=== PATIENT | female | born 1935 | race Caucasian/White ===

== ENCOUNTER 2020-01-13 13:58 | Outpatient (CLI) | payer MEDICARE, SELFPAY ==
[2020-01-13 14:34] LABS: Hematocrit 38.1 % (37.0-47.0); Hemoglobin 12.3 g/dL (12.0-15.0); Mean Corpuscular HGB Conc 32.3 g/dl (32-36); Mean Corpuscular Hemoglobin 30.2 pg (26-34); Mean Corpuscular Volume 93.6 fl (80-100); Mean Platelet Volume 9.6 fl (7.4-10.4); Platelet Count Result 249 k/mm3 (150-375); Red Blood Count 4.07 M/mm3 (4.2-5.4); Red Cell Distribution Width 12.3 % (11.5-14.5); White Blood Count 9.4 K/mm3 (4.5-10.0)
[2020-01-13 14:41] LABS: Add Urine Microscopic? YES; Appearance Urine Cloudy (Clear); Bacteria Urine 2+ /hpf; Bilirubin Urine 1+ (Negative); Blood Urine Negative (Negative); Color Urine Yellow (Yellow); Glucose Urine UA Negative (Negative); Hyaline Casts Urine 15-19 /lpf; Ketones Urine Negative (Negative); Leukocyte Esterase Ur 1+ LEU/UL (NEGATIVE); Mucus Urine Few /lpf; Nitrate Urine Negative (Negative); Protein Urine 1+ mg/dL (Negative); Squamous Epithelial Cell Urine Many /hpf (Few); WBC Urine 16-20 /hpf (0-3)
[2020-01-13 14:50] LABS: Alanine Aminotransferase 15 U/L (4-35); Albumin Level 4.2 g/dL (3.5-5.1); Alkaline Phosphatase 94 U/L (38-126); Aspartate Amino Transferase 22 U/L (14-36); Blood Urea Nitrogen 26 mg/dL (7-17); Calcium 9.1 mg/dL (8.4-10.2); Carbon Dioxide 25 mmol/L (22-30); Chloride 106 mmol/L (98-107); Cholesterol 179 mg/dL (0-200); Estimated Glomerular Filt Rate 36; Glucose 110 mg/dL (65-105); HDL Direct 46 mg/dL; Potassium 4.8 mmol/L (3.4-5.0); Sodium 139 mmol/L (137-145); Triglycerides 261 mg/dL (<150)
[2020-01-13 15:01] LABS: LDL Cholesterol Direct 90 mg/dL
== END 2020-01-13 13:59 | disposition home or self-care (01) ==
PROVIDERS: PCP Family Medicine; Visit Provider Family Medicine
DX: I12.9 Hypertensive chronic kidney disease with stage 1 through stage 4 chronic kidney disease, or unspecified chronic kidney disease (principal); E78.2 Mixed hyperlipidemia; N18.3 Chronic kidney disease, stage 3 (moderate)
CPT/HCPCS: 36415; 80053; 80061; 81001; 84443; 85027

== ENCOUNTER 2020-02-03 12:33 | Outpatient (CLI) | payer MEDICARE, SELFPAY ==
--- NOTE | ~2020-02-03 | DEXA_ITS ---
Bone Density Report Name: Dahiana Polo Age: 84 Sex: Female Ethnicity: White Date of : 1935 Indication: osteopenia; monitoring treatment; height loss; hysterectomy; rheumatoid arthritis; Referring Provider: Brian Dugan Study: Bone densitometry was performed. Exam Date: February 03, 2020 Accession number: [id number] Bone Density: Region BMD T-score Z-score Classification AP Spine (L1, L2) 1.212 2.1 4.8 Normal Femoral Neck (Left) 0.447 -3.6 -1.1 Osteoporosis Total Hip (Left) 0.687 -2.1 0.2 Osteopenia Total Hip Bilateral Avg 0.719 -1.8 0.4 Osteopenia Femoral Neck (Right) 0.472 -3.4 -0.9 Osteoporosis Total Hip (Right) 0.750 -1.6 0.7 Osteopenia World Health Organization criteria for BMD impression classify patients as: Normal (T-score at or above -1.0), Osteopenia (T-score between -1.0 and -2.5), or Osteoporosis (T-score at or below -2.5). 10-year Fracture Risk: FRAX not reported because: Some T-score for Spine Total or Hip Total or Femoral Neck at or below -2.5 Treated for osteoporosis Previous Exams: Region Exam Age BMD T-score BMD Change BMD Change Date g/cm2 vs Baseline vs Previous AP Spine(L1, L2) 02/03/2020 84 1.212 2.1 0.079(7.0%)* 0.079(7.0%)* 10/11/2016 81 1.133 1.4 Total Hip(Left) 02/03/2020 84 0.687 -2.1 -0.011(-1.6%) -0.011(-1.6%) 10/11/2016 81 0.698 -2.0 Total Hip(Right) 02/03/2020 84 0.750 -1.6 0.038(5.3%)* 0.038(5.3%)* 10/11/2016 81 0.712 -1.9 *Denotes significance at 95% confidence level, LSC for AP Spine = 0.022 g/cm2, LSC for Total Hip = 0.027 g/cm2 Clinical Information Provided by Patient: Has rheumatoid arthritis Is being treated for osteoporosis Has used the following medications: Prolia (i.e. denosumab), Vitamin D, Calcium Has the following medical conditions: Hysterectomy Patient maximum height was 65 Menopause Age: 53 No regular weight bearing exercise Drinks caffeinated beverages Onset of menses at age 12 Number of children 0 Impression: The patient has osteoporosis, based on the Left Femoral Neck T-score. No significant bone loss was observed. Discussion: PATIENT UNDER TREATMENT WITH NO SIGNIFICANT BMD LOSS SINCE LAST EXAM. In an untreated patient, BMD typically declines with age. A lack of decline or gain is usually a sign that treatment is efficacious and fracture risk is reduced. It is important to ask patients whether they are taking their medications and to encourage continued
== END 2020-02-03 12:34 | disposition home or self-care (01) ==
LOC: ANHIMG 12:34
PROVIDERS: PCP Family Medicine; Visit Provider Family Medicine
DX: Z78.0 Asymptomatic menopausal state (principal); M85.89 Other specified disorders of bone density and structure, multiple sites; M81.0 Age-related osteoporosis without current pathological fracture
CPT/HCPCS: 77080

== ENCOUNTER 2020-09-07 13:55 | Outpatient (CLI) | payer MEDICARE, SELFPAY | END 2020-09-07 13:56 | disposition home or self-care (01) | PROVIDERS: PCP Family Medicine; Visit Provider Family Medicine | DX: I12.9 Hypertensive chronic kidney disease with stage 1 through stage 4 chronic kidney disease, or unspecified chronic kidney disease (principal) | CPT/HCPCS: 36415 ==

== ENCOUNTER 2020-10-12 11:45 | Outpatient (CLI) | payer MEDICARE, SELFPAY ==
[2020-10-12 12:26] LABS: Add Urine Microscopic? YES; Appearance Urine Cloudy (Clear); Bacteria Urine Trace /hpf; Bilirubin Urine Negative (Negative); Blood Urine Negative (Negative); Color Urine Yellow (Yellow); Glucose Urine UA Negative (Negative); Ketones Urine Negative (Negative); Leukocyte Esterase Ur Trace LEU/UL (Negative); Mucus Urine Rare /lpf; Nitrate Urine Negative (Negative); Protein Urine 3+ mg/dL (Negative); RBC Urine 0-2 /hpf (0-2); Specific Grav Ur 1.015 (1.001-1.035); Squamous Epithelial Cell Urine Many /hpf (Few); Urobilinogen Urine Negative mg/dL (<2.0)
== END 2020-10-12 11:46 | disposition home or self-care (01) ==
LOC: ANHLAB 11:47
PROVIDERS: PCP Family Medicine; Visit Provider Family Medicine
DX: N39.0 Urinary tract infection, site not specified (principal)
CPT/HCPCS: 81001; 87077; 87086; 87088; 87186

== ENCOUNTER 2021-03-10 10:15 | Outpatient (CLI) | payer MEDICARE, SELFPAY ==
[2021-03-10 11:07] LABS: Hematocrit 38.9 % (37.0-47.0); Hemoglobin 12.7 g/dL (12.0-15.0); Mean Corpuscular HGB Conc 32.6 g/dl (32-36); Mean Corpuscular Hemoglobin 30.6 pg (26-34); Mean Corpuscular Volume 93.7 fl (80-100); Mean Platelet Volume 10.6 fl (7.4-10.4); Platelet Count Result 260 k/mm3 (150-375); Red Blood Count 4.15 M/mm3 (4.2-5.4); Red Cell Distribution Width 12.8 % (11.5-14.5); White Blood Count 8.8 K/mm3 (4.5-10.0)
[2021-03-10 11:13] LABS: Add Urine Microscopic? YES; Appearance Urine Cloudy (Clear); Bilirubin Urine Negative (Negative); Blood Urine Negative (Negative); Color Urine Yellow (Yellow); Glucose Urine UA Negative (Negative); Ketones Urine Negative (Negative); Leukocyte Esterase Ur 1+ LEU/UL (NEGATIVE); Nitrate Urine Negative (Negative); Protein Urine 1+ mg/dL (Negative); Specific Grav Ur 1.015 (1.001-1.035); Squamous Epithelial Cell Urine Many /hpf (Few); Urobilinogen Urine Negative mg/dL (<2.0)
[2021-03-10 11:29] LABS: Alanine Aminotransferase 16 U/L (4-35); Albumin Level 4.2 g/dL (3.5-5.1); Alkaline Phosphatase 123 U/L (38-126); Anion Gap 15 mmol/L (8-16); Aspartate Amino Transferase 26 U/L (14-36); Bilirubin,Total 0.9 mg/dL (0.2-1.3); Blood Urea Nitrogen 28 mg/dL (7-17); Calcium 9.6 mg/dL (8.4-10.2); Carbon Dioxide 25 mmol/L (22-30); Chloride 103 mmol/L (98-107); Cholesterol 196 mg/dL (0-200); Estimated Glomerular Filt Rate 39; Glucose 115 mg/dL (65-110); HDL Direct 44 mg/dL; Potassium 4.6 mmol/L (3.4-5.0); Sodium 143 mmol/L (137-145); Triglycerides 224 mg/dL (<150)
[2021-03-10 11:40] LABS: LDL Cholesterol Direct 88 mg/dL
== END 2021-03-10 10:16 | disposition home or self-care (01) ==
LOC: ANHLAB 10:19
PROVIDERS: PCP Family Medicine; Visit Provider Family Medicine
DX: I12.9 Hypertensive chronic kidney disease with stage 1 through stage 4 chronic kidney disease, or unspecified chronic kidney disease (principal); N18.30 Chronic kidney disease, stage 3 unspecified; E78.2 Mixed hyperlipidemia
CPT/HCPCS: 36415; 80053; 80061; 81001; 84443; 85027

== ENCOUNTER 2021-03-19 09:15 | Inpatient (IN) | payer MEDICARE, SELFPAY ==
[2021-03-19] VITALS (31 sets, daily range): BP systolic 140–172; BP diastolic 56–90; PULSE 75–96; RESP 14–20; TEMP 36.8–37.1; O2SAT 92–100; BMI 40.4
--- NOTE | ~2021-03-19 | XR_ITS ---
EXAMINATION: XR chest 1V portable EXAM DATE: 03/19/2021 09:30 INDICATION: Cough and shortness of breath. TECHNIQUE: Portable AP frontal chest x-ray was obtained. There is no prior study for comparison. FINDINGS: The lungs are clear. There are no pleural effusions. Cardiac silhouette is prominent but magnified on this AP technique. There is no pneumothorax suspected. There are bony degenerative ch anges. IMPRESSION: No acute cardiopulmonary findings. Reviewed, dictated and finalized at location A.
--- NOTE | ~2021-03-19 | CT_ITS ---
EXAMINATION: CTA chest PE protocol EXAM DATE: 03/19/2021 11:34 INDICATION: Hypoxia, cough. TECHNIQUE: Spiral CTA of the chest (pulmonary arteries) was performed with 100 cc Omnipaque 350 intr avenous contrast injection. Images were acquired during the pulmonary arterial phase. Coronal maxi mum intensity projection 3D-reconstructions were created by the technologist on dedicated workstation . Axial, coronal and sagittal reformatted images were reviewed. The dose-length product (DLP) for t his examination was 639.19 mGy-cm. The exposure was tailored according to patient size (auto mA exp osure control), and iterative reconstruction (ASIR) was used as additional dose reduction technique. There is no prior study for comparison. FINDINGS: Pulmonary arteries are well opacified and without intraluminal filling defects. No thora cic aortic dissection. Right lower lobe calcified granuloma. Mild emphysema. There are no pleural o r pericardial effusions. Tracheobronchial tree is patent. There is no mediastinal, hilar or axill vinh lymphadenopathy. There is no pneumothorax. Borderline cardiomegaly. There is mild coronary arterial calcification, arterial sclerosis. Upper abdomen is unremarkable. There is thoracic spond ylosis without osteoblastic or osteolytic lesions identified. IMPRESSION: 1. Mild emphysema. 2. Borderline cardiomegaly. 3. No acute cardiopulmonary findings. Reviewed, dictated and finalized at location A.
--- NOTE | ~2021-03-19 | US_ITS ---
EXAMINATION: US venous doppler LE EXAM DATE: 03/22/2021 14:02 INDICATION: Elevated d-dimer. Hypoxia. TECHNIQUE: Multiple grayscale, color flow and Doppler images of the lower extremity deep venous syste ms bilaterally were obtained and reviewed. Correlation is made to CT pulmonary scan 03/19/2021. FINDINGS: Right side: The right common femoral, femoral and profunda veins demonstrate normal color flow, respi ratory variation, augmentation and compressibility. Compressibility, color flow confirmed within the right popliteal, posterior tibial, peroneal, and greater saphenous veins. Left side: The left common femoral, femoral and profunda veins demonstrate normal color flow, respira tory variation, augmentation and compressibility. Compressibility, color flow confirmed within the l eft popliteal, posterior tibial, peroneal, and greater saphenous veins. There is a left-sided Slaughter' s cyst measuring 7 x 4 x 2.5 cm. IMPRESSION: 1. No lower extremity deep venous thrombosis bilaterally. 2. Large left Slaughter's cyst. Reviewed, dictated and finalized at location B.
--- NOTE | 2021-03-19 09:19 | ECG_ITS ---
Measurements Intervals [place] Rate: 90 P: 63 NH: 288 QRS: -47 QRSD: 118 T: 91 QT: 350 QTc: 428 Interpretive Statements SINUS RHYTHM WITH FIRST DEGREE AV BLOCK INCOMPLETE RIGHT BUNDLE BRANCH BLOCK LEFT ANTERIOR FASCICULAR BLOCK LEFT VENTRICULAR HYPERTROPHY AND ST-T CHANGE BASELINE ARTIFACT- I, III, AVL, V2 ABNORMAL ECG Electronically Signed On 03-19-2021 11:25:16 CDT by Teo Daniels D.O.
[2021-03-19 09:59] LABS: Basophils Absolute Auto 0.1 K/mm3 (0.0-0.1); Basophils Percent Auto 0.6 % (0.2-1.2); Eosinophils Absolute Auto 0.3 K/mm3 (0-0.3); Eosinophils Percent Auto 2.5 % (0-4.4); Hematocrit 40.7 % (37.0-47.0); Hemoglobin 13.1 g/dL (12.0-15.0); Immature Granulocyte Absolute 0.07 K/mm3 (0.00-0.031); Immature Granulocyte Percent A 0.6 % (0-0.5); Lymphocytes Absolute Auto 2.04 K/mm3 (0.9-3.2); Lymphocytes Percent Auto 17.6 % (18.3-44.2); Mean Corpuscular HGB Conc 32.2 g/dl (32-36); Mean Corpuscular Hemoglobin 30.7 pg (26-34); Mean Corpuscular Volume 95.3 fl (80-100); Mean Platelet Volume 10.6 fl (7.4-10.4); Monocytes Absolute Auto 1.1 K/mm3 (0.1-0.6); Monocytes Percent Auto 9.2 % (2.6-8.5); Neutrophils Percent Auto 69.5 % (45.5-73.1); Platelet Count Result 238 k/mm3 (150-375); Red Blood Count 4.27 M/mm3 (4.2-5.4); Red Cell Distribution Width 12.9 % (11.5-14.5); White Blood Count 11.6 K/mm3 (4.5-10.0)
[2021-03-19 10:17] LABS: Anion Gap 12 mmol/L (8-16); Blood Urea Nitrogen 18 mg/dL (7-17); Calcium 9.7 mg/dL (8.4-10.2); Carbon Dioxide 23 mmol/L (22-30); Chloride 107 mmol/L (98-107); Estimated CRCL calculation 41 ml/min; Estimated Glomerular Filt Rate 53; Glucose 110 mg/dL (65-110); Potassium 4.6 mmol/L (3.4-5.0); Sodium 142 mmol/L (137-145)
--- NOTE | 2021-03-19 10:34 | PC.NURSE ---
called lab talked to neela at 1034 added on a D dimer
[2021-03-19 11:03] LABS: D Dimer 0.52 ug/mL (<0.48)
--- NOTE | 2021-03-19 11:24 | ED.GENADULT ---
HPI - General Adult General Chief complaint: Shortness of Breath/Dyspnea Stated complaint: SOB Time Seen by Provider: 03/19/21 10:21 Source: patient Mode of arrival: EMS Limitations: no limitations History of Present Illness HPI narrative: Patient with history of GERD, high blood pressure, hypertension, presents with chief complaint of persistent cough causing rib pain, headaches and shortness of breath that has been worsening since Sunday. Patient states that she is a fatigue, congestion since . Patient states that she has been vaccinated with Pfizer. Patient reports she does not generally use oxygen at home. Patient states that her cough is persistent and it makes her feel short of breath. Patient denies fever, chills, nausea, vomiting, diarrhea, neurological deficits. Patient denies known sick contacts. Related Data Home Medications Medication Instructions Recorded Confirmed aspirin 81 mg tablet,delayed 81 mg PO DAILY 06/18/19 03/01/21 release cyanocobalamin (vitamin B-12) 100 100 mcg PO DAILY 06/18/19 03/01/21 mcg tablet vit tablet PO 06/18/19 03/01/21 [id number] 500 mg-50 mg-25 mg-40 mg tablet Allergies Allergy/AdvReac Type Severity Reaction Status Date / Time No Known Allergies Allergy Mild Verified 03/01/21 13:31 Review of Systems Review of Systems: CONSTITUTIONAL: Denies fever, chills, or sweats. EYES: Denies visual changes, redness, or discharge. ENT: Reports congestion, sore throat denies or otalgia. CARDIOVASCULAR: Denies chest pain, palpitations, or edema. RESPIRATORY: Reports cough and concurrent dyspnea. GASTROINTESTINAL: Denies abdominal pain, nausea, vomiting, or diarrhea. GENITOURINARY: Denies dysuria or hematuria. SKIN: Denies rash or itching. MUSCULOSKELETAL: Reports muscle soreness from coughing denies back pain, joint pain NEUROLOGIC: Denies headache, numbness, dizziness, or weakness. PSYCHIATRIC: Denies anxiety or depression. 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 Gout Hypertension PND (post-nasal drip) Surgical History Surgical History History of hysterectomy History of tonsillectomy Status post cataract extraction Family History Family History Father Family history of lung cancer Mother Family history of lung cancer Social History Social History (Updated 03/01/21 @ 13:32 by Lisa Eldridge) Social History: The patient lives home alone. She is . 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 She is a full code and desires to have her sister rishi collins and maribeth collins are listed as her durable power associate attorney for healthcare. The patient is a lifelong nonsmoker. She does not use any alcohol marijuana or illicit drugs. Smoking status: Never smoker Second hand tobacco smoke exposure: No Alcohol intake: never Substance use: never Substance use type: does not use Gender identity (if verbalized by the patient): Female Sexual Orientation (if Verbalized by the Patient): Straight or Heterosexual Spiritual care concerns: No Exam Narrative: GENERAL: Well-appearing, well-nourished, and in no acute distress. HEAD: Normocephalic, atraumatic. EYES: PERRLA and EOMI. ENT: Nares clear, no rhinorrhea or epistaxis. Mucous membranes moist. Oropharynx without tonsillar hypertrophy exudate or other lesions. Bilateral TMs pearly brooks nonbulging NECK: Supple. No adenopathy or masses. CHEST: Clear to auscultation. Persistent cough throughout exam. Cough is deep and nonproductive. Patient's oxygen saturation 94% on room air and to she begins coughing fits then desats to 88% HEART: Regular rate and rhythm. . EXTREMITIES: Normal r
--- NOTE | 2021-03-19 12:00 | PC.NURSE ---
Pt. O2 saturations drop while patient having cough spouts down into the high 80s then immediately goes back up into the upper 90s. ERP notified. Pt. placed on 2L of oxygen via nasal cannula.
[2021-03-19 12:09] LABS: EDCOVIDSCREEN Negative (Negative)
[2021-03-19] MEDS: DEXAMETHASONE SOD PHOS INJ 4 MG/ML VIAL 10 MG IV PUSH (14:39)
--- NOTE | 2021-03-19 16:30 | PM.IMHP ---
H&P: HPI History of Present Illness Date/Time: 03/19/21 16:30 this is a 85-year-old female patient who lives home alone. The patient has a history of hypertension. The patient has been having a persistent cough causing rib pain, she has had headaches, and shortness of breath that started to worsen since Sunday. The patient stated that she is completely vaccinated with the Pfizer vaccine. She also has fatigue and congestion since this past . She said this feels similar to when she had bronchitis when year. Patient stated with the more she talks the more she cause. She had a tactile fever. She denies any nausea vomiting or diarrhea. She denies any sick contacts. Her white count noted to be 11.6. Chest x-ray was read as no acute cardiopulmonary findings. Chest CTA was read as mild emphysema. Borderline cardiomegaly. No acute cardiopulmonary findings. Patient's rapid COVID test was negative. The patient was started on Decadron. Patient is being admitted to observation status on the date of service of 03/19/2021 Chief Complaint: Cough Review of Systems Review of Systems: All systems reviewed & are unremarkable except as noted in HPI and below Constitutional: Constitutional: Reports as per HPI and Reports no additional constitutional complaints Eyes: Eyes: Reports as per HPI and Reports no additional eye complaints ENT: Reports system reviewed and no additional complaints, except as documented and Reports Normal hearing present Cardiovascular: Cardiovascular: Reports no additional cardiovascular complaints Respiratory: Respiratory: Reports no additional respiratory complaints and Reports no additional respiratory complaints Gastrointestinal: Gastrointestinal: Reports as per HPI and Reports no additional gastrointestinal complaints Musculoskeletal: Musculoskeletal: Reports no additional musculoskeletal complaints Integumentary/Breasts: Skin/Breast: Reports system reviewed and no additional complaints, except as docu and Reports as per HPI Neurologic: Reports system reviewed and no additional complaints, except as documented, Reports as per HPI and Reports Normal hearing present Psychiatric: Psychiatric: Reports no additional psychiatric complaints and Reports as per HPI Endocrine: Endocrine: Reports no additional endocrine complaints Hematologic/Lymphatic: Hematologic/Lymphatic: Reports no additional hematologic/lymphatic complaints Allergic/Immunologic: Allergic/Immunologic: Reports no additional allergic/immunologic complaints [facility] Past Medical History Medical History (Updated 03/19/21 @ 16:46 by Los Moise PA-C) CKD (chronic kidney disease), stage III 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 Gout Hypertension PND (post-nasal drip) Surgical History Surgical History History of hysterectomy History of tonsillectomy Status post cataract extraction Family History Family History Father Family history of lung cancer Mother Family history of lung cancer Social History Social History (Updated 03/19/21 @ 16:45 by Quin Mir NP) Social History: The patient lives home alone. She is . She has no children the patient has worked for a [employer] and then a [employer]. She is a full code and desires to have her sister rishi collins and maribeth collins are listed as her durable power compliance attorney for healthcare. The patient is a lifelong nonsmoker. She does not use any alcohol marijuana or illicit drugs. Smoking status: Never smoker Second hand tobacco smoke exposure: No Alcohol intake: never Substance use: never Substance use type: does not use Gender identity (if verbalized by the patient): Female Sexual Orientation (if Verbalized by the Patient): Straight or Heterosexual Spiritual care concerns: No Meds Home Medications and Allergies Home Medications
--- NOTE | 2021-03-19 17:47 | PC.NURSE ---
This patient, Dahiana Polo, was admitted to 3 [facility] Surg Room 320-01. Patient/family oriented to hospital policies and general routines including ID bracelet, bed and alarms, visiting hours, pain management, procedures, bathroom and other care routines, personal items, smoking policy, room service/diet, and visiting hours. Information on how to activate the Rapid Response Team has been discussed. Patient/Family are encouraged to report perceived risks to care and to ask questions if they do not understand what they are told or what they should do.
[2021-03-19] MEDS: guaiFENesin/DEXTROMETHORPHAN 10 ML UDC PO ×2 (18:09→21:04)
[2021-03-20] MEDS: guaiFENesin/DEXTROMETHORPHAN 10 ML UDC PO ×3 (01:23→10:59)
[2021-03-20 06:00] VITALS: BP 138/56; PULSE 59; RESP 18; TEMP 36.2; O2SAT 97
[2021-03-20 06:27] LABS: Basophils Percent Auto 0.3 % (0.2-1.2); Hematocrit 37.4 % (37.0-47.0); Hemoglobin 11.9 g/dL (12.0-15.0); Immature Granulocyte Absolute 0.08 K/mm3 (0.00-0.031); Lymphocytes Absolute Auto 1.37 K/mm3 (0.9-3.2); Lymphocytes Percent Auto 17.3 % (18.3-44.2); Mean Corpuscular HGB Conc 31.8 g/dl (32-36); Mean Corpuscular Volume 94.2 fl (80-100); Mean Platelet Volume 10.4 fl (7.4-10.4); Monocytes Absolute Auto 0.3 K/mm3 (0.1-0.6); Monocytes Percent Auto 3.4 % (2.6-8.5); Neutrophils Absolute Auto 6.2 K/mm3 (1.3-6.7); Platelet Count Result 233 k/mm3 (150-375); Red Blood Count 3.97 M/mm3 (4.2-5.4); Red Cell Distribution Width 12.4 % (11.5-14.5); White Blood Count 7.9 K/mm3 (4.5-10.0)
[2021-03-20 06:59] LABS: Lactic Acid Reflex 0.7 mmol/L (0.7-2.1)
[2021-03-20 07:06] LABS: Alanine Aminotransferase 14 U/L (4-35); Albumin Level 3.9 g/dL (3.5-5.1); Alkaline Phosphatase 91 U/L (38-126); Anion Gap 10 mmol/L (8-16); Aspartate Amino Transferase 28 U/L (14-36); Bilirubin,Total 0.8 mg/dL (0.2-1.3); Blood Urea Nitrogen 21 mg/dL (7-17); CRP 6.3 mg/dL (<1.0); Calcium 9.4 mg/dL (8.4-10.2); Carbon Dioxide 23 mmol/L (22-30); Chloride 106 mmol/L (98-107); Estimated CRCL calculation 37 ml/min; Estimated Glomerular Filt Rate 47; Glucose 137 mg/dL (65-110); Lactate Dehydrogenase 443 U/L (313-618); Magnesium 1.7 mg/dL (1.6-2.3); Potassium 4.4 mmol/L (3.4-5.0); Sodium 139 mmol/L (137-145)
[2021-03-20 08:00] VITALS: PULSE 86; RESP 18; O2SAT 97
[2021-03-20] MEDS: hydroCHLOROthiazide 12.5 MG CAPSULE PO (08:27)
[2021-03-20] MEDS: amLODIPine BESYLATE 5 MG TABLET 10 MG PO (08:27)
[2021-03-20] MEDS: ASPIRIN 81 MG ENTERIC TABLET PO (08:27)
[2021-03-20] MEDS: PANTOPRAZOLE 40 MG TABLET PO (08:27)
[2021-03-20 08:28] VITALS: PULSE 86
[2021-03-20] MEDS: ENOXAPARIN 40 MG/0.4 ML SYRINGE SUB-Q (08:28)
[2021-03-20] MEDS: ATORVASTATIN 40 MG TABLET PO (08:28)
[2021-03-20] MEDS: METOPROLOL SUCCINATE EXT REL 25 MG TABCR PO (08:28)
[2021-03-20] MEDS: DICLOFENAC SOD 75 MG TABLET.EC PO ×2 (08:28→17:44)
[2021-03-20 09:05] LABS: Thyroid Stimulating Hormone Reflex 0.398 uIU/mL (0.465-4.68)
[2021-03-20] MEDS: guaiFENesin/CODEINE (*CRX) 200/20 MG 10 ML SYRUP PO ×3 (11:26→21:50)
[2021-03-20 14:00] VITALS: BP 151/68; PULSE 67; RESP 18; TEMP 36.5; O2SAT 92
--- NOTE | 2021-03-20 15:23 | PM.IMPN ---
Progress Note: A&P Assessment and Plan (1) Acute bronchitis: Code(s): J20.9 - Acute bronchitis, unspecified Status: Acute (2) Hypoxia: Code(s): R09.02 - Hypoxemia Status: Acute (3) Acute viral syndrome: Code(s): B34.9 - Viral infection, unspecified Status: Acute (4) Hypertension: Code(s): I10 - Essential (primary) hypertension Status: Chronic (5) Emphysema lung: Code(s): J43.9 - Emphysema, unspecified Status: Acute (6) Chronic kidney disease (CKD) stage G3b/A1, moderately decreased glomerular filtration rate (GFR) between 30-44 mL/min/1.73 square meter and albuminuria creatinine ratio less than 30 mg/g: Code(s): N18.3 - Chronic kidney disease, stage 3 (moderate) Status: Acute (7) Mixed hyperlipidemia: Code(s): E78.2 - Mixed hyperlipidemia Status: Acute Additional Plan 03/19/21 The patients lowest o2 saturation was noted to be 92% however it was reported that the patient drops down in the 80s when she coughs. chest cta was read as emphysema, borderline cardiomegaly and nothing acute. She is currently on room air The patient's rapid COVID was negative. She will be swabbed for PCR. She was started on an inhaler Decadron. Resume home medications it looks like she may be on amlodipine, hydrochlorothiazide and metoprolol. Patient is lifelong nonsmoker. Continue with inhaler at this time. Her creatinine is 1.0 with a GFR of 53 which is much improved from her previous readings. Continue to monitor. Continue with her home medication. Looks like she may be on atorvastatin. 03/20/21 Patient improving with nebs, steroids, azithromycin, cough syrup containing codeine and supportive care Remains on oxygen Flu pending Anticipate discharge in 24-48 hours Time Spent With Patient Time with patient: 25 - 35 minutes Subjective Date/time seen: 03/20/21 20:23 pt feeling better after initiation of cough syrup w codeine, over all doing better still on O2 still w coughing fits Exam Narrative: GEN: NAD, AAOx3, cooperative HEENT: NCAT, MMM, EOMI poor dentition Neck: no JVD Heart: S1S2 RRR Lungs: inspiratory rhonchi no wheezing Abd: soft, NT, ND, bowel sounds normoactive Ext: moves all, no cyanosis, no clubbing, no edema Neuro: No focal neurological deficits, cranial nerves intact Psych: Mood and affect congruent Objective Data Vital Signs Vital Signs: Vital Signs - 24 hr 03/19/21 21:54 03/20/21 06:00 03/20/21 08:00 Temperature 98.7 F 97.1 F L Pulse Rate 78 59 L 86 Respiratory Rate 18 18 18 Blood Pressure 140/68 138/56 L Pulse Oximetry 94 97 97 03/20/21 08:28 03/20/21 14:00 03/20/21 19:59 Temperature 97.7 F Pulse Rate 86 67 85 Respiratory Rate 18 20 Blood Pressure 151/68 H Pulse Oximetry 92 Intake/Output Intake/Output: Intake & Output 03/17/21 03/18/21 03/19/21 03/20/21 23:59 23:59 23:59 23:59 Intake Total 2270 Output Total 1600 Balance 670 Meds/Results Medications: Active Medications Generic Name Dose Route Start Last Admin Trade Name Freq PRN Reason Stop Dose Admin Acetaminophen 650 mg 03/20/21 19:02 Acetaminophen 325 Mg Tablet PO Q6H PRN Mild Pain (1-3) or Fever Albuterol 2.5 mg 03/20/21 18:47 03/20/21 19:57 Albuterol Sulfate Neb 2.5 Mg/0.5 Ml Inh INHALATION 2.5 mg Q6HRT PRN Administration Shortness Of Breath Albuterol 1.25 mg 03/20/21 18:59 Albuterol Sulfate Neb 2.5 Mg/3 Ml Inh INHALATION ONCE PRN Shortness Of Breath Or Wheezing Amlodipine Besylate 10 mg 03/20/21 09:00 03/20/21 08:27 Amlodipine Besylate 5 Mg Tablet PO 10 mg DAILY VISHAL Administration Aspirin 81 mg 03/20/21 09:00 03/20/21 08:27 Aspirin 81 Mg Enteric Tablet PO 81 mg DAILY VISHAL Administration Atorvastatin Calcium 40 mg 03/20/21 09:00 03/20/21 08:28 Atorvastatin 40 Mg Tablet PO 40 mg DAILY VISHAL Administration Azithromycin 500 mg 03/20/21
[2021-03-20 18:46] LABS: Total Triiodothyronine (T3) 0.87 NG/ML (0.97-1.69)
[2021-03-20 19:40] LABS: NT Pro B Type Natriuretic Pept 741 pg/mL (5-100)
[2021-03-20] MEDS: ALBUTEROL SULFATE NEB 2.5 MG/0.5 ML INH INHALATION (19:57)
[2021-03-20] MEDS: IPRATROPIUM BR 0.02% INH SOLN 0.5 MG/2.5 ML VIAL INHALATION (19:58)
[2021-03-20 19:59] VITALS: PULSE 85; RESP 20
[2021-03-20 21:08] LABS: Influenza Control Positive
[2021-03-20] MEDS: methylPREDNISolone SOD SUCC 40 MG VIAL IV PUSH (21:51)
[2021-03-20] MEDS: AZITHROMYCIN 250 MG TABLET 500 MG PO (21:51)
[2021-03-20 22:00] VITALS: BP 131/75; PULSE 103; RESP 20; TEMP 36.2; O2SAT 91
[2021-03-21 06:00] VITALS: BP 148/84; PULSE 50; RESP 16; TEMP 35.8; O2SAT 98
[2021-03-21 06:56] LABS: Basophils Percent Auto 0.1 % (0.2-1.2); Hematocrit 35.8 % (37.0-47.0); Hemoglobin 11.5 g/dL (12.0-15.0); Immature Granulocyte Absolute 0.08 K/mm3 (0.00-0.031); Immature Granulocyte Percent A 0.5 % (0-0.5); Lymphocytes Percent Auto 11.6 % (18.3-44.2); Mean Corpuscular HGB Conc 32.1 g/dl (32-36); Mean Corpuscular Hemoglobin 30.4 pg (26-34); Mean Corpuscular Volume 94.7 fl (80-100); Mean Platelet Volume 10.5 fl (7.4-10.4); Monocytes Absolute Auto 0.7 K/mm3 (0.1-0.6); Monocytes Percent Auto 4.5 % (2.6-8.5); Neutrophils Absolute Auto 12.2 K/mm3 (1.3-6.7); Neutrophils Percent Auto 83.3 % (45.5-73.1); Platelet Count Result 234 k/mm3 (150-375); Red Blood Count 3.78 M/mm3 (4.2-5.4); Red Cell Distribution Width 12.5 % (11.5-14.5); White Blood Count 14.6 K/mm3 (4.5-10.0)
[2021-03-21 07:02] LABS: Anion Gap 12 mmol/L (8-16); Blood Urea Nitrogen 36 mg/dL (7-17); Calcium 8.8 mg/dL (8.4-10.2); Carbon Dioxide 23 mmol/L (22-30); Chloride 102 mmol/L (98-107); Estimated CRCL calculation 29 ml/min; Estimated Glomerular Filt Rate 36; Glucose 143 mg/dL (65-110); Potassium 5.1 mmol/L (3.4-5.0); Sodium 137 mmol/L (137-145)
[2021-03-21] MEDS: guaiFENesin/CODEINE (*CRX) 200/20 MG 10 ML SYRUP PO ×3 (07:15→21:19)
[2021-03-21 08:00] VITALS: O2SAT 96
[2021-03-21] MEDS: ENOXAPARIN 40 MG/0.4 ML SYRINGE SUB-Q (08:42)
[2021-03-21] MEDS: hydroCHLOROthiazide 12.5 MG CAPSULE PO (08:42)
[2021-03-21 08:43] VITALS: PULSE 76
[2021-03-21] MEDS: METOPROLOL SUCCINATE EXT REL 25 MG TABCR PO (08:43)
[2021-03-21] MEDS: DICLOFENAC SOD 75 MG TABLET.EC PO ×2 (08:43→16:32)
[2021-03-21] MEDS: amLODIPine BESYLATE 5 MG TABLET 10 MG PO (08:43)
[2021-03-21] MEDS: ATORVASTATIN 40 MG TABLET PO (08:44)
[2021-03-21] MEDS: ASPIRIN 81 MG ENTERIC TABLET PO (08:44)
[2021-03-21] MEDS: PANTOPRAZOLE 40 MG TABLET PO (08:45)
[2021-03-21] MEDS: methylPREDNISolone SOD SUCC 40 MG VIAL IV PUSH ×2 (08:45→21:19)
--- NOTE | 2021-03-21 12:24 | P.PNIM_ITS ---
Progress Note: A&P Assessment and Plan (1) Acute bronchitis: Code(s): J20.9 - Acute bronchitis, unspecified Status: Acute Assessment and Plan: * Currently on room air * Supportive care * methylprednisone * Inhalers * Robitussin with codeine (2) Hypoxia: Code(s): R09.02 - Hypoxemia Status: Acute Assessment and Plan: * lowest o2 saturation was noted to be 92% * reported that the patient drops down in the 80s when she coughs. * chest cta showed emphysema, borderline cardiomegaly and nothing acute. * currently on room air * Covid negative PCR pending * Inhaler, methylprednisone * Azithromycin, robitussin with codine * Supportive care (3) Acute viral syndrome: Code(s): B34.9 - Viral infection, unspecified Status: Acute Assessment and Plan: * rapid COVID was negative. * swabbed for PCR. * inhaler Decadron. * See above (4) Hypertension: Code(s): I10 - Essential (primary) hypertension Status: Chronic Assessment and Plan: * Resume home medications: amlodipine, hydrochlorothiazide and metoprolol. * trend blood pressure * Adjust medications as needed (5) Emphysema lung: Code(s): J43.9 - Emphysema, unspecified Status: Acute Assessment and Plan: * Patient is lifelong nonsmoker. * Continue with inhaler at this time. (6) Chronic kidney disease (CKD) stage G3b/A1, moderately decreased glomerular filtration rate (GFR) between 30-44 mL/min/1.73 square meter and albuminuria creatinine ratio less than 30 mg/g: Code(s): N18.3 - Chronic kidney disease, stage 3 (moderate) Status: Acute Assessment and Plan: * Her creatinine is 1.40 with a GFR of 36 * Could be from dehydration * Encourage PO intake * Strict I&Os * elevated from what it has been * Trend labs in the am (7) Mixed hyperlipidemia: Code(s): E78.2 - Mixed hyperlipidemia Status: Acute Assessment and Plan: * Continue with home medication atorvastatin 40mg PO Daily Time Spent With Patient Time with patient: 25 - 35 minutes Subjective Date/time seen: 03/21/21 11:45 Interval history: Patient is an 85 year old female that is here for frequent cough and shortness of breath. Patient stated that she is feeling 80% better today. She still does have her cough, but stated that the cough syrup with codine is really helping her. She does cough and get short of breath with talking. If she laughs it gets worse for her. She is off the oxygen and is breathing ok with that. She is able to get up and gets around on a walker. She does have a walker at home and she still drives. She denies chest pain, shortness of breath, nausea, vomiting, weakness, fatigue. She admits to constipation and less rib pain. Review of Systems Review of Systems: All systems reviewed & are unremarkable except as noted in HPI and below Exam Const: General: cooperative, comfortable, no acute distress, well developed, alert, awake and Physically active Nutritional Appearance: average body habitus, obese and overweight Orientation/consciousness: oriented to person, oriented to place, oriented to time and patient oriented x3 Limitations: physical limitations HENMT: Head: normal to inspection, No palpable skull fracture present, normocephalic and atraumatic Ears: hearing grossly normal bilaterally and
--- NOTE | 2021-03-21 12:24 | PM.IMPN ---
Progress Note: A&P Assessment and Plan (1) Acute bronchitis: Code(s): J20.9 - Acute bronchitis, unspecified Status: Acute Assessment and Plan: Currently on room air Supportive care methylprednisone Inhalers Robitussin with codeine (2) Hypoxia: Code(s): R09.02 - Hypoxemia Status: Acute Assessment and Plan: lowest o2 saturation was noted to be 92% reported that the patient drops down in the 80s when she coughs. chest cta showed emphysema, borderline cardiomegaly and nothing acute. currently on room air Covid negative PCR pending Inhaler, methylprednisone Azithromycin, robitussin with codine Supportive care (3) Acute viral syndrome: Code(s): B34.9 - Viral infection, unspecified Status: Acute Assessment and Plan: rapid COVID was negative. swabbed for PCR. inhaler Decadron. See above (4) Hypertension: Code(s): I10 - Essential (primary) hypertension Status: Chronic Assessment and Plan: Resume home medications: amlodipine, hydrochlorothiazide and metoprolol. trend blood pressure Adjust medications as needed (5) Emphysema lung: Code(s): J43.9 - Emphysema, unspecified Status: Acute Assessment and Plan: Patient is lifelong nonsmoker. Continue with inhaler at this time. (6) Chronic kidney disease (CKD) stage G3b/A1, moderately decreased glomerular filtration rate (GFR) between 30-44 mL/min/1.73 square meter and albuminuria creatinine ratio less than 30 mg/g: Code(s): N18.3 - Chronic kidney disease, stage 3 (moderate) Status: Acute Assessment and Plan: Her creatinine is 1.40 with a GFR of 36 Could be from dehydration Encourage PO intake Strict I&Os elevated from what it has been Trend labs in the am (7) Mixed hyperlipidemia: Code(s): E78.2 - Mixed hyperlipidemia Status: Acute Assessment and Plan: Continue with home medication atorvastatin 40mg PO Daily Time Spent With Patient Time with patient: 25 - 35 minutes Subjective Date/time seen: 03/21/21 11:45 Interval history: Patient is an 85 year old female that is here for frequent cough and shortness of breath. Patient stated that she is feeling 80% better today. She still does have her cough, but stated that the cough syrup with codine is really helping her. She does cough and get short of breath with talking. If she laughs it gets worse for her. She is off the oxygen and is breathing ok with that. She is able to get up and gets around on a walker. She does have a walker at home and she still drives. She denies chest pain, shortness of breath, nausea, vomiting, weakness, fatigue. She admits to constipation and less rib pain. Review of Systems Review of Systems: All systems reviewed & are unremarkable except as noted in HPI and below Exam Const: General: cooperative, comfortable, no acute distress, well developed, alert, awake and Physically active Nutritional Appearance: average body habitus, obese and overweight Orientation/consciousness: oriented to person, oriented to place, oriented to time and patient oriented x3 Limitations: physical limitations HENMT: Head: normal to inspection, No palpable skull fracture present, normocephalic and atraumatic Ears: hearing grossly normal bilaterally and external ears normal General nose exam: Normal external nose present and Normal nares present Mouth: Yes Normal oral and palatal mucosa present Throat: posterior oropharynx normal Eyes: General: appearance normal, both eyes and all related structures Alignment and Position: alignment normal Periorbital: periorbital findings normal Eyelids: eyelids normal Conjunctivae: conjunctivae normal Pupils: Equal, round and reactive pupils present EOM: EOMs intact bilaterally Neck: Neck: normal visual inspection and full ROM Thyroid: thyroid normal
[2021-03-21 14:42] VITALS: BP 117/82; PULSE 56; RESP 18; TEMP 36.8; O2SAT 93
[2021-03-21 20:00] VITALS: PULSE 65; RESP 20; O2SAT 98
[2021-03-21] MEDS: AZITHROMYCIN 250 MG TABLET 500 MG PO (21:19)
[2021-03-21 22:00] VITALS: BP 154/73; PULSE 65; RESP 20; TEMP 36.3; O2SAT 98
[2021-03-22] VITALS (7 sets, daily range): BP systolic 131–166; BP diastolic 58–80; PULSE 48–62; RESP 16–20; TEMP 36.3–36.7; O2SAT 90–95
[2021-03-22] MEDS: guaiFENesin/CODEINE (*CRX) 200/20 MG 10 ML SYRUP PO ×4 (06:29→20:15)
[2021-03-22 06:37] LABS: Basophils Percent Auto 0.1 % (0.2-1.2); Hematocrit 37.5 % (37.0-47.0); Hemoglobin 12.1 g/dL (12.0-15.0); Immature Granulocyte Absolute 0.21 K/mm3 (0.00-0.031); Immature Granulocyte Percent A 1.3 % (0-0.5); Lymphocytes Percent Auto 9.2 % (18.3-44.2); Mean Corpuscular HGB Conc 32.3 g/dl (32-36); Mean Corpuscular Hemoglobin 30.9 pg (26-34); Mean Corpuscular Volume 95.7 fl (80-100); Mean Platelet Volume 10.6 fl (7.4-10.4); Monocytes Absolute Auto 0.5 K/mm3 (0.1-0.6); Monocytes Percent Auto 3.1 % (2.6-8.5); Neutrophils Absolute Auto 14.2 K/mm3 (1.3-6.7); Neutrophils Percent Auto 86.3 % (45.5-73.1); Platelet Count Result 262 k/mm3 (150-375); Red Blood Count 3.92 M/mm3 (4.2-5.4); Red Cell Distribution Width 12.6 % (11.5-14.5); White Blood Count 16.4 K/mm3 (4.5-10.0)
[2021-03-22 06:52] LABS: Alanine Aminotransferase 21 U/L (4-35); Albumin Level 3.9 g/dL (3.5-5.1); Alkaline Phosphatase 77 U/L (38-126); Anion Gap 11 mmol/L (8-16); Aspartate Amino Transferase 48 U/L (14-36); Bilirubin,Total 0.8 mg/dL (0.2-1.3); Blood Urea Nitrogen 42 mg/dL (7-17); Calcium 9.2 mg/dL (8.4-10.2); Carbon Dioxide 26 mmol/L (22-30); Chloride 103 mmol/L (98-107); Estimated CRCL calculation 27 ml/min; Estimated Glomerular Filt Rate 33; Glucose 139 mg/dL (65-110); Magnesium 1.9 mg/dL (1.6-2.3); Potassium 5.1 mmol/L (3.4-5.0); Sodium 140 mmol/L (137-145)
[2021-03-22 08:30] LABS: Hemoglobin A1C 5.7 % (<5.7)
[2021-03-22] MEDS: methylPREDNISolone SOD SUCC 40 MG VIAL IV PUSH (10:25)
[2021-03-22] MEDS: ENOXAPARIN 40 MG/0.4 ML SYRINGE SUB-Q (10:26)
[2021-03-22] MEDS: ASPIRIN 81 MG ENTERIC TABLET PO (10:27)
[2021-03-22] MEDS: hydroCHLOROthiazide 12.5 MG CAPSULE PO (10:28)
[2021-03-22] MEDS: ATORVASTATIN 40 MG TABLET PO (10:28)
[2021-03-22] MEDS: METOPROLOL SUCCINATE EXT REL 25 MG TABCR PO (10:28)
[2021-03-22] MEDS: DICLOFENAC SOD 75 MG TABLET.EC PO ×2 (10:28→16:19)
[2021-03-22] MEDS: amLODIPine BESYLATE 5 MG TABLET 10 MG PO (10:29)
[2021-03-22] MEDS: PANTOPRAZOLE 40 MG TABLET PO (10:29)
--- NOTE | 2021-03-22 12:43 | PC.NURSE ---
This patient, Dahiana Polo, was transferred to [ultrasound ] on 03/22/21 at 1243.
--- NOTE | 2021-03-22 12:49 | PM.IMPN ---
Progress Note: A&P Assessment and Plan (1) Acute bronchitis: Code(s): J20.9 - Acute bronchitis, unspecified Status: Acute Assessment and Plan: Improving but still has a significant cough -CTA shows no evidence of PE or pneumonia but does show mild emphysema -symptoms seem worse than imaging, consider viral illness> -she has a history of being exposed to chemicals and secondhand smoke -unable to get sputum culture -she states she has had about 4 episodes of this in her life but this is by far the worst one. Could have untreated COPD/asthma -will ask pulmonology their recommendations as she would benefit from outpatient PFTs and pulmonology follow-up when she has improved -will decrease steroids from 40 mg b.i.d. IV push to 40 mg daily -COVID and influenza negative. Could be other cold viruses -she had 2 days of azithromycin earlier in the stay and was discontinued 03-21, no evidence of pneumonia -will schedule albuterol and ipratropium instead of using it p.r.n. for now (2) Hypoxia: Code(s): R09.02 - Hypoxemia Status: Acute Assessment and Plan: Resolved -lowest o2 saturation was noted to be 92% -reported that the patient drops down in the 80s when she coughs. (3) Acute viral syndrome: Code(s): B34.9 - Viral infection, unspecified Status: Acute Assessment and Plan: As above (4) Hypertension: Code(s): I10 - Essential (primary) hypertension Status: Chronic Assessment and Plan: Last blood pressure 143/58 -continue amlodipine, hydrochlorothiazide and metoprolol. (5) Emphysema lung: Code(s): J43.9 - Emphysema, unspecified Status: Acute Assessment and Plan: Patient is lifelong nonsmoker but has been exposed to secondhand smoke and chemicals -pulmonology consulted as above (6) Chronic kidney disease (CKD) stage G3b/A1, moderately decreased glomerular filtration rate (GFR) between 30-44 mL/min/1.73 square meter and albuminuria creatinine ratio less than 30 mg/g: Code(s): N18.3 - Chronic kidney disease, stage 3 (moderate) Status: Acute Assessment and Plan: Around baseline at 1.5 -slightly hyperkalemic -she is not on any medications to be causing increase potassium -no UTI symptoms -will need to follow up with primary care physician for routine monitoring (7) Mixed hyperlipidemia: Code(s): E78.2 - Mixed hyperlipidemia Status: Acute Assessment and Plan: Chronic Time Spent With Patient Time with patient: 25 - 35 minutes Subjective Date/time seen: 03/22/21 12:49 Interval history: Pt is a 85-year-old female here for bronchitis and significant cough. Patient was seen today and states she she coughs any time she talks whatsoever. She says this has happened to her a few times in her life but never this bad. She does say that she is feeling better. She has pleuritic chest pain under her ribs when she coughs. No substernal chest pain, arm pain or jaw pain. She states that she is been living in an apartment that has bedbugs and they have been spraying chemicals. She has also been exposed to secondhand smoke. Review of Systems Review of Systems: All systems reviewed & are unremarkable except as noted in HPI and below Exam Narrative: General: Well developed well nourished patient in NAD HEENT: normocephalic Neck: supple Neuro: Alert and oriented x4 CV:RRR Resp: Decreased breath signs bilaterally. Patient has significant cough with any inspiration. Abd: Soft, non distended. No pain to palpation. Positive bowel sounds Extremities: No swelling, erythema, or pain to palpation. Objective Data Vital Signs Vital Signs: Vital Signs - 24 hr 03/21/21 14:42 03/21/21 20:00 03/21/21 22:00 Temperature 98.2 F 97.4 F L Pulse Rate 56 L 65 65 Respiratory Rate 18 20 20 Blood Pressure 117/82 154/73 H Pulse Oximetry 93 98 98 03/22/21 06:00
--- NOTE | 2021-03-22 16:22 | PM.CNPUL ---
Assessment and Plan Assessment and plan (1) Cough: Code(s): R05 - Cough Status: Acute Assessment and Plan: Patient developed acute cough approximately 5 days ago and has a negative CT angiogram and has improved with 2 days of azithromycin, 4 days of systemic steroids and bronchodilators. She is COVID negative and influenza negative. Patient has no chronic history consistent with asthma. She has no current complaints of sinus disease. She states that her reflux is controlled with Protonix. I see no evidence of a bacterial infection at this time. She has no evidence of lung cancer. She has no evidence of interstitial lung disease. The patient has been exposed to chemicals in her apartment complex although the cough has persisted since she has been out of her home environment now for 4 days. The patient may have a non COVID 9 influenza viral infection. Patient states that she has 50% back to baseline and feels that she will likely be ready to go home tomorrow. If she is stable overnight I agree with discharge tomorrow in these pulmonary medicines prednisone 40 mg p.o. q.day x5 days albuterol 2 puffs Q 4-6 hours p.r.n. cough Guafenesin/codeine 10 mL p.o. q.4 hours p.r.n.. I told the patient that if her cough persists more than another 2 weeks she should call the Pulmonary office for an appointment. Will sign off, please call with questions. History of Present Illness History of Present Illness Consult date: 03/22/21 Requesting physician: Latricia Stern PA-C Reason for consult: cough Chief complaint: Viral Syndrome with hypoxia Narrative: this is a new Pulmonary consult for cough. 85-year-old woman with a history of hypertension, gout and 3 episodes of bronchitis and 1992, 2002 and 2003 presented on 03/19 with cough. Patient stated that the cough started on 03/17 in the evening and this progressed to being constant with occasional production of yellow phlegm. Patient denied any fever, chills, rigors, hemoptysis but did complain of some chest pain with coughing. Patient lives in a facility that apparently has a bedbug infestation for the last 3 years. The 1st year there was a he treatment the 2nd year there was a he treatment and this year the facility has undergone numerous sprain by the professional mitten sewer. In January of 2021 the patient had a weekly sprain of her apartment complex on Sunday for 4 weeks. She did notice some sinus congestion after this sprain occurred. In February the patient had minimal cough but they were sprain adjacent rooms to hers as well as rooms above and below her. Since 01/30 the patient has applied to commercial sprays for bedbugs in her own apartment and these of also given her some sinus mucus production but minimal coughing. In 1992 patient had a coughing episode that was controlled with Robitussin. In 2002 the patient had a coughing episode where she presented to the emergency room and was given a missed treatment and a shot treatment and was discharged from the emergency room. In 2003 she had a coughing episode that was treated with a with [id number] Vicks and Robitussin and this resolved completely. Patient was a admitted in had a white blood cell count of 11.6 with 2.5% eosinophils, a chest x-ray with no acute findings and a CT angiogram that showed no pulmonary embolism very mild centrilobular emphysema no adenopathy no masses and no consolidations. The patient was initially treated for bronchitis with azithromycin and treated for a COPD exacerbation with bronchodilators and steroids. Today the patient tells me that she is 50% better. The cough persists but it is less violent and the coughing paroxysms are lasting less time. She denies any sinus congestion or postnasal drip. Patient has been on antacids for 20 years and states that her acid taste in her mouth is improved. Patient states that the cough is improved now with the Guaifenesin -coding
[2021-03-22] MEDS: AZITHROMYCIN 250 MG TABLET 500 MG PO (20:15)
[2021-03-22] MEDS: ALBUTEROL SULFATE NEB 2.5 MG/0.5 ML INH INHALATION (21:35)
[2021-03-22] MEDS: IPRATROPIUM BR 0.02% INH SOLN 0.5 MG/2.5 ML VIAL INHALATION (21:36)
[2021-03-23] VITALS (9 sets, daily range): BP systolic 134–163; BP diastolic 62–67; PULSE 47–82; RESP 16–22; TEMP 36.4; O2SAT 94–98
[2021-03-23] MEDS: guaiFENesin/CODEINE (*CRX) 200/20 MG 10 ML SYRUP PO ×4 (00:54→13:25)
[2021-03-23] MEDS: IPRATROPIUM BR 0.02% INH SOLN 0.5 MG/2.5 ML VIAL INHALATION ×2 (02:41→09:45)
[2021-03-23] MEDS: ALBUTEROL SULFATE NEB 2.5 MG/0.5 ML INH INHALATION ×2 (02:41→09:45)
[2021-03-23] MEDS: DICLOFENAC SOD 75 MG TABLET.EC PO (08:51)
[2021-03-23] MEDS: METOPROLOL SUCCINATE EXT REL 25 MG TABCR PO (08:51)
[2021-03-23] MEDS: ATORVASTATIN 40 MG TABLET PO (08:51)
[2021-03-23] MEDS: methylPREDNISolone SOD SUCC 40 MG VIAL IV PUSH (08:51)
[2021-03-23] MEDS: ENOXAPARIN 40 MG/0.4 ML SYRINGE SUB-Q (08:51)
[2021-03-23] MEDS: hydroCHLOROthiazide 12.5 MG CAPSULE PO (08:52)
[2021-03-23] MEDS: ASPIRIN 81 MG ENTERIC TABLET PO (08:53)
[2021-03-23] MEDS: PANTOPRAZOLE 40 MG TABLET PO (08:53)
[2021-03-23] MEDS: amLODIPine BESYLATE 5 MG TABLET 10 MG PO (08:53)
[2021-03-23] MEDS: ACETAMINOPHEN 325 MG TABLET 650 MG PO (09:03)
--- NOTE | 2021-03-23 10:13 | PM.DS ---
DS: Admitting Diagnosis Discharge Date 03/23/2021 Admitting Diagnosis bronchitis DS: Discharge Diagnosis Discharge Diagnosis (1) Acute bronchitis: Code(s): J20.9 - Acute bronchitis, unspecified Status: Acute Assessment and Plan: Improving but continues to have a cough -CTA shows no evidence of PE or pneumonia but does show mild emphysema -she has a history of being exposed to chemicals and secondhand smoke -unable to get sputum culture - pulmonology consulted and recommended prednisone, albuterol and Mucinex with codeine. She is to follow-up if her cough persists greater than 2 weeks -COVID and influenza negative. Could be other cold viruses -she had 2 days of azithromycin earlier in the stay and was discontinued 03-21, no evidence of pneumonia (2) Hypoxia: Code(s): R09.02 - Hypoxemia Status: Acute Assessment and Plan: Resolved -lowest o2 saturation was noted to be 92% -reported that the patient drops down in the 80s when she coughs. (3) Acute viral syndrome: Code(s): B34.9 - Viral infection, unspecified Status: Acute Assessment and Plan: As above (4) Hypertension: Code(s): I10 - Essential (primary) hypertension Status: Chronic Assessment and Plan: Last blood pressure 134/67 -continue home medications (5) Emphysema lung: Code(s): J43.9 - Emphysema, unspecified Status: Acute Assessment and Plan: Patient is lifelong nonsmoker but has been exposed to secondhand smoke and chemicals -pulmonology consulted and she is going to follow up outpatient (6) Chronic kidney disease (CKD) stage G3b/A1, moderately decreased glomerular filtration rate (GFR) between 30-44 mL/min/1.73 square meter and albuminuria creatinine ratio less than 30 mg/g: Code(s): N18.3 - Chronic kidney disease, stage 3 (moderate) Status: Acute Assessment and Plan: Around baseline at 1.5 (7) Mixed hyperlipidemia: Code(s): E78.2 - Mixed hyperlipidemia Status: Acute Assessment and Plan: Chronic DS: Summary Hospital Course Hospital Course: Date of service 03/23/2021 patient is an 85-year-old female Who is fully vaccinated against COVID-19 with a history of hypertension, and GERD who presented emergency room for persistent cough. Vitals in the ER was temperature 98.4? F, pulse 96, respiratory rate 15, blood pressure 145/90, pulse ox 97 on room air. Initial white blood cell count 11.6. Hemoglobin hematocrit normal. BMP within normal limits. D-dimer slightly elevated. CTA of the chest showed mild emphysema with no other abnormalities. Patient was admitted to the hospitalist service and observed. She was tested for COVID and influenza which was negative. She continued to have a significant cough and pulmonology was consulted. She was started on steroids and breathing treatments. The day of discharge her symptoms had improved by 50% and she was feeling better although she still had a cough. Pulmonology has recommended follow-up in his office if the cough persists for greater than 2 weeks. patient was educated about the worrisome signs and symptoms to come back to emergency room for and was discharged in stable condition. Status at Discharge Functional status at discharge: independent ambulation Time Spent with Patient Time attestation: Total time spent providing and/or coordinating discharge services:38 min Time spent: Greater than 30 minutes Exam Narrative: General: Well developed well nourished patient in NAD HEENT: normocephalic Neck: supple Neuro: Alert and oriented x4 CV:RRR Resp: Decreased breath signs bilaterally. Patient has significant cough with any inspiration. Slight wheeze Abd: Soft, non distended. No pain to palpation. Positive bowel sounds Extremities: No swelling, erythema, or pain to palpation. DS: Data Data Completed and Pending Labs on day
[2021-03-23 10:19] LABS: Alanine Aminotransferase 26 U/L (4-35); Albumin Level 4.3 g/dL (3.5-5.1); Alkaline Phosphatase 82 U/L (38-126); Anion Gap 12 mmol/L (8-16); Aspartate Amino Transferase 59 U/L (14-36); Bilirubin,Total 0.9 mg/dL (0.2-1.3); Blood Urea Nitrogen 48 mg/dL (7-17); Calcium 9.6 mg/dL (8.4-10.2); Carbon Dioxide 26 mmol/L (22-30); Chloride 101 mmol/L (98-107); Estimated CRCL calculation 27 ml/min; Estimated Glomerular Filt Rate 33; Glucose 103 mg/dL (65-110); Potassium 4.5 mmol/L (3.4-5.0); Sodium 139 mmol/L (137-145)
== END 2021-03-23 13:30 | disposition home or self-care (01) | DRG 866 ==
LOC: ANHED 10:21 → ANH3MEDSUR 15:02
PROVIDERS: Hospitalist; Nurse Practitioner; Physician Assistant; Admitting Provider Internal Medicine Nephrology; Emergency Provider Emergency Medicine; PCP Family Medicine; Visit Provider Internal Medicine
DX: B34.9 Viral infection, unspecified (principal); J20.9 Acute bronchitis, unspecified; R09.02 Hypoxemia; J43.9 Emphysema, unspecified; I10 Essential (primary) hypertension; N18.30 Chronic kidney disease, stage 3 unspecified; E78.2 Mixed hyperlipidemia; K21.9 Gastro-esophageal reflux disease without esophagitis; Z98.42 Cataract extraction status, left eye; Z98.41 Cataract extraction status, right eye; Z90.710 Acquired absence of both cervix and uterus
CPT/HCPCS: 36415; 71045; 71275; 80048; 80053; 80076; 83036; 83605; 83615; 83735; 83880; 84439; 84443; 84480; 85025; 85380; 86140; 87070; 87205; 87426; 87804; 93005; 93970; 94640; 96372; 96374; 96375; 96376; 97161; 97165; 99285; A9270; C9803; G0378; J1100; J1650; J2920; Q9967

== ENCOUNTER 2021-08-15 14:24 | Outpatient (CLI) | payer MEDICARE, SELFPAY ==
--- NOTE | ~2021-08-15 | XR_ITS ---
XR lumbar spine 2-3V DATE: 08/15/2021 14:58 INDICATION: Low back pain. No known injury. TECHNIQUE: AP, lateral, coned lateral lumbosacral views COMPARISON: 07/25/2018 MR lumbar spine 06/04/2017 lumbar spine FINDINGS: Diffuse osteopenia. There is mild levoscoliosis of the thoracolumbar spine. There is severe degenerative disc disease at L1-2, L2-3, L3-4. There is mild retrolisthesis at L2-3, minimal retrolisthesis at L3-4. The included lower thoracic and lumbar pedicles are intact. No bone destruction is evident. No fractu re is detected. The sacroiliac joints appear normal. There is calcification of the abdominal aorta without apparent aneurysm. IMPRESSION: Osteopenia Multilevel degenerative disc disease, particularly severe at L1-2 through L3-4 Reviewed, dictated and finalized at location A. [employer]
== END 2021-08-15 14:25 | disposition home or self-care (01) ==
LOC: ANHIMG 14:37
PROVIDERS: PCP Family Medicine; Visit Provider Family Medicine
DX: M51.36 Other intervertebral disc degeneration, lumbar region (principal); I10 Essential (primary) hypertension
CPT/HCPCS: 72100

== ENCOUNTER 2021-08-19 15:55 | Outpatient (CLI) | payer MEDICARE, SELFPAY ==
[2021-08-19 16:44] LABS: Potassium 4.7 mmol/L (3.4-5.0)
[2021-08-19 16:47] LABS: Alanine Aminotransferase 11 U/L (4-35); Albumin Level 3.9 g/dL (3.5-5.1); Alkaline Phosphatase 114 U/L (38-126); Anion Gap 3 mmol/L (8-16); Aspartate Amino Transferase 20 U/L (14-36); Bilirubin,Total 0.6 mg/dL (0.2-1.3); Blood Urea Nitrogen 28 mg/dL (7-17); Calcium 9.5 mg/dL (8.4-10.2); Carbon Dioxide 28 mmol/L (22-30); Chloride 108 mmol/L (98-107); Estimated Glomerular Filt Rate 36; Glucose 112 mg/dL (65-110); Sodium 139 mmol/L (137-145)
== END 2021-08-19 15:56 | disposition home or self-care (01) ==
LOC: ANHLAB 15:59
PROVIDERS: PCP Family Medicine; Visit Provider Physician Assistant
DX: I12.9 Hypertensive chronic kidney disease with stage 1 through stage 4 chronic kidney disease, or unspecified chronic kidney disease (principal); N18.30 Chronic kidney disease, stage 3 unspecified
CPT/HCPCS: 36415; 80053

== ENCOUNTER 2021-10-07 13:39 | Emergency (ER) | payer MEDICARE, SELFPAY ==
--- NOTE | 2021-10-07 13:43 | ED.GENADULT ---
HPI - General Adult General Chief complaint: Extremity Problem,Nontraumatic Stated complaint: left shoulder pain Time Seen by Provider: 10/07/21 14:06 Mode of arrival: ambulatory Limitations: no limitations History of Present Illness HPI narrative: 86-year-old female presents with concern for left scapula pain, left arm pain that is a 20/10 . She denies injury or trauma. Reports she had similar pain 10 years ago when she had bursitis. She has been using a lidocaine patch which she reports helps a little bit. She reports the pain is worse when she moves. Reports a numbness sensation on her left hand near the fifth digit. Reports she did not take her blood pressure medication today. She denies shortness of breath, chest pain, bruising, open skin. MD complaint: Shoulder pain Related Data Home Medications Medication Instructions Recorded Confirmed aspirin 81 mg tablet,delayed 81 mg PO DAILY 06/18/19 08/15/21 release cyanocobalamin (vitamin B-12) 100 100 mcg PO DAILY 06/18/19 08/15/21 mcg tablet vit 1 tablet PO DAILY 06/18/19 08/15/21 [id number] 500 mg-50 mg-25 mg-40 mg tablet Allergies Allergy/AdvReac Type Severity Reaction Status Date / Time No Known Allergies Allergy Mild Verified 10/07/21 13:55 Review of Systems Review of Systems: CONSTITUTIONAL: Denies malaise, chills, sweats, or fever. CARDIOVASCULAR: Denies chest pain, palpitations, or edema. RESPIRATORY: Denies cough or dyspnea. 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 Gout Hypertension PND (post-nasal drip) Surgical History Surgical History History of hysterectomy History of tonsillectomy Status post cataract extraction Family History Family History Father Family history of lung cancer Mother Family history of lung cancer Social History Social History Social History: The patient lives home alone. She is . 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 The patient is a lifelong nonsmoker. She does not use any alcohol marijuana or illicit drugs. Smoking status: Never smoker Second hand tobacco smoke exposure: No Alcohol intake: never Substance use: never Substance use type: does not use Gender identity (if verbalized by the patient): Female Sexual Orientation (if Verbalized by the Patient): Straight or Heterosexual Spiritual care concerns: No Comments At time of signature, agree with nursing past medical, surgical, social and family history. There is no relevant family history pertinent to the presenting complaint Exam Narrative: GENERAL: Well-appearing and in no acute distress. HEAD: Normocephalic EYES: PERRLA, sclera clear, and EOMI. No nystagmus. ENT: Mucous membranes moist. NECK: Supple. CHEST: No respiratory distress. Clear to auscultation. No bony deformities, no asymmetry. Speaks in full sentences. HEART: Regular rate and rhythm. Normal peripheral pulses. EXTREMITIES: Grossly normal range of motion. No pitting edema. SKIN: Warm, dry, no visible rash. NEURO: Alert and oriented x3. PSYCH: Normal mood and affect Course Course Emergency Course: Patient is aware of, understands and agrees to reasons to be transferred to the emergency room via EMS, agrees to EMS [email or web address]
[2021-10-07 13:55] VITALS: BP 160/82; PULSE 67; RESP 18; TEMP 36.6; O2SAT 99
--- NOTE | 2021-10-07 13:59 | ECG_ITS ---
Measurements Intervals [place] Rate: 55 P: 20 MN: 284 QRS: -50 QRSD: 117 T: 51 QT: 412 QTc: 394 Interpretive Statements SINUS BRADYCARDIA WITH FIRST DEGREE AV BLOCK PATTERN CONSISTENT WITH PULMONARY DISEASE LEFT ANTERIOR FASCICULAR BLOCK [QRS AXIS <= -45, QR IN I, RS IN II] LEFT VENTRICULAR HYPERTROPHY AND ST-T CHANGE [VOLTAGE CRITERIA PLUS ST/T ABNORMALITY] ABNORMAL ECG COMPARED TO ECG 10/07/2021 14:04:33 FIRST DEGREE AV BLOCK NOW PRESENT Electronically Signed On 10-07-2021 17:34:39 CDT by Justice Fermin M.D.
== END 2021-10-07 14:20 | disposition short-term general hospital (02) ==
PROVIDERS: Emergency Provider Nurse Practitioner; PCP Family Medicine
DX: R94.31 Abnormal electrocardiogram [ECG] [EKG] (principal); I12.9 Hypertensive chronic kidney disease with stage 1 through stage 4 chronic kidney disease, or unspecified chronic kidney disease; N18.30 Chronic kidney disease, stage 3 unspecified; M10.9 Gout, unspecified; Z98.49 Cataract extraction status, unspecified eye
CPT/HCPCS: 93005; 99215; G0463

== ENCOUNTER 2021-10-07 14:44 | Observation (INO) | payer MEDICARE, SELFPAY ==
--- NOTE | ~2021-10-07 | XR_ITS ---
EXAMINATION: CHEST RADIOGRAPH (PORTABLE SINGLE VIEW AP) Exam Date/Time: 10/08/2021 15:25 CDT CLINICAL HISTORY: Elevated troponin, shoulder pain. Comparison: 03/19/2021. RESULT: Lines, tubes, and devices: None. Lungs and pleura: Minimal bibasilar linear opacities, likely atelectasis and/or bronchovascular [place], otherwise clear. Cardiomediastinal silhouette: Stable cardiomediastinal silhouette. Other: No acute osseous or upper abdominal finding. IMPRESSION: No acute cardiopulmonary process. Reviewed, dictated and finalized at location K.
[2021-10-07 14:47] VITALS: BP 194/80; PULSE 67; RESP 16; TEMP 36.7; O2SAT 100
--- NOTE | 2021-10-07 14:49 | ECG_ITS ---
Measurements Intervals [place] Rate: 51 P: MN: 0 QRS: -48 QRSD: 117 T: 22 QT: 412 QTc: 382 Interpretive Statements SINUS BRADYCARDIA WITH FIRST-DEGREE AV BLOCK PREMATURE VENTRICULAR CONTRACTIONS PATTERN CONSISTENT WITH PULMONARY DISEASE LEFT ANTERIOR FASCICULAR BLOCK [QRS AXIS <= -45, QR IN I, RS IN II] VOLTAGE CRITERIA FOR LVH [MEETS CRITERIA IN ONE OF: R(aVL), S(V1), R(V5), R(V5/V6)+S(V1)] MODERATE ST DEPRESSION [0.05+ mV ST DEPRESSION] ABNORMAL ECG COMPARED TO ECG 03/19/2021 09:23:55 HEART RATE HAS DECREASED PVCS NOW PRESENT Electronically Signed On 10-07-2021 17:28:09 CDT by Justice Fermin M.D.
[2021-10-07 16:41] LABS: Basophils Absolute Auto 0.1 K/mm3 (0.0-0.1); Basophils Percent Auto 0.6 % (0.2-1.2); Eosinophils Absolute Auto 0.2 K/mm3 (0-0.3); Eosinophils Percent Auto 1.7 % (0-4.4); Hematocrit 42.5 % (37.0-47.0); Hemoglobin 13.5 g/dL (12.0-15.0); Immature Granulocyte Absolute 0.03 K/mm3 (0.00-0.031); Immature Granulocyte Percent A 0.3 % (0-0.5); Lymphocytes Absolute Auto 3.36 K/mm3 (0.9-3.2); Lymphocytes Percent Auto 33.4 % (18.3-44.2); Mean Corpuscular HGB Conc 31.8 g/dl (32-36); Mean Corpuscular Hemoglobin 30.7 pg (26-34); Mean Corpuscular Volume 96.6 fl (80-100); Mean Platelet Volume 9.9 fl (7.4-10.4); Monocytes Absolute Auto 0.6 K/mm3 (0.1-0.6); Neutrophils Absolute Auto 5.8 K/mm3 (1.3-6.7); Platelet Count Result 240 k/mm3 (150-375); Red Cell Distribution Width 12.5 % (11.5-14.5); White Blood Count 10.1 K/mm3 (4.5-10.0)
[2021-10-07 16:50] LABS: Alanine Aminotransferase 15 U/L (4-35); Albumin Level 4.4 g/dL (3.5-5.1); Alkaline Phosphatase 122 U/L (38-126); Anion Gap 8 mmol/L (8-16); Aspartate Amino Transferase 23 U/L (14-36); Bilirubin,Total 1.2 mg/dL (0.2-1.3); Blood Urea Nitrogen 21 mg/dL (7-17); Calcium 9.5 mg/dL (8.4-10.2); Carbon Dioxide 25 mmol/L (22-30); Chloride 106 mmol/L (98-107); Estimated CRCL calculation 38 ml/min; Estimated Glomerular Filt Rate 47; Glucose 107 mg/dL (65-110); Lipase 50 U/L (23-300); Potassium 4.4 mmol/L (3.4-5.0); Sodium 139 mmol/L (137-145)
[2021-10-07 16:52] LABS: Prothrombin Time 13.1 Seconds (11.1-14.7)
[2021-10-07 16:53] LABS: Partial Thromboplastin Time 26.1 SECONDS (22.3-36.8)
[2021-10-07 17:02] LABS: Troponin I 0.023 ng/mL (0.000-0.034)
[2021-10-07 19:06] VITALS: BP 162/122; PULSE 86; RESP 19; O2SAT 92
--- NOTE | 2021-10-07 19:54 | ED.GENADULT ---
HPI - General Adult General Chief complaint: Recheck/Abnormal Lab/Rx Stated complaint: left shoulder pain, afib per UC Time Seen by Provider: 10/07/21 19:04 History of Present Illness HPI narrative: Patient is an 86-year-old female who presents ER with left shoulder pain. Patient reports pain has been ongoing since this morning. Sharp cramping in the posterior shoulder and between the spine and scapula. Cannot describe any aggravating factors. It did improve with some administration of aspirin. Patient went to the urgent care to be seen because she cannot be seen by her PCP. There they told her she had an irregular heart rhythm and need to be evaluated ER as this could possibly be cardiac related. At that time patient reports she had a tingling going down into the left fifth digit. Patient denies chest pain or shortness of breath. No nausea or vomiting or dizziness. Denies any increase in her pain with exertion. She reports she has not taken her antihypertensives today due to being uncomfortable in her back. Patient has had similar pain in the past. Patient reports she has history of heart Hiccups. Related Data Home Medications Medication Instructions Recorded Confirmed aspirin 81 mg tablet,delayed 81 mg PO DAILY 06/18/19 10/08/21 release cyanocobalamin (vitamin B-12) 100 1,000 mcg PO DAILY 06/18/19 10/08/21 mcg tablet vit 1 tablet PO DAILY 06/18/19 10/08/21 [id number] 500 mg-50 mg-25 mg-40 mg tablet Allergies Allergy/AdvReac Type Severity Reaction Status Date / Time No Known Allergies Allergy Mild Verified 10/07/21 13:55 Review of Systems Review of Systems: All systems reviewed & are unremarkable except as noted in HPI and below Constitutional: Constitutional: Denies chills, Denies fever(s) and Denies weakness ENT: Denies nasal congestion and Denies sore throat Cardiovascular: Cardiovascular: Denies chest pain, Denies rapid heart rate and Denies radiating jaw, neck or arm pain Respiratory: Respiratory: Denies cough, Denies dyspnea and Denies wheezing Gastrointestinal: Gastrointestinal: Denies abdominal pain, Denies nausea and Denies vomiting Musculoskeletal: Musculoskeletal: Reports arthralgias, Denies joint swelling and Reports muscle cramps Neurologic: Denies headache(s), Denies focal weakness and Denies numbness PMFSH Past Medical History Medical History CKD (chronic kidney disease), stage III 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 Gout Hypertension PND (post-nasal drip) Surgical History Surgical History History of hysterectomy History of tonsillectomy Status post cataract extraction Family History Family History Father Family history of lung cancer Mother Family history of lung cancer Social History Social History Social History: The patient lives home alone. She is . 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 She is a full code and desires to have her sister rishi collins and maribeth collins are listed as her durable power chief cloth finishing range operator for healthcare. The patient is a lifelong nonsmoker. She does not use any alcohol marijuana or illicit drugs. Smoking status: Never smoker Second hand tobacco smoke exposure: No Alcohol intake: never Substance use: never Substance use type: does not use Gender identity (if verbalized by the patient): Female Sexual Orientation (if Verbalized by the Patient): Straight or Heterosexual Spiritual care concerns: No Exam Narrative: GENERAL: Well-appearing, well-nourished, and in no acute distress. HEAD: Normocephalic, atraumatic. ENT: Mucous membranes moist. CHEST: Clear to auscultation. No respiratory distress. HEART: Regular rate a
[2021-10-07 20:35] LABS: Troponin I 0.039 ng/mL (0.000-0.034)
[2021-10-07 20:54] VITALS: BP 208/95; PULSE 78; RESP 12; O2SAT 99
[2021-10-07] MEDS: NITROGLYCERIN SL 0.4 MG TABLET SUBLINGUAL (21:23)
--- NOTE | 2021-10-07 21:49 | PC.NURSE ---
first dose of nitro 0.4 mg given at 2122, pt still had minor pain after five minutes second dose given 2125. pt refused third dose stating I feel really dizzy and light headed, I dont want the third dose. third dose not given.
--- NOTE | 2021-10-07 22:01 | PM.IMHP ---
H&P: HPI History of Present Illness Date/Time: 10/07/21 22:01 Chief Complaint: Shoulder pain. Narrative: Patient is a an 86-year-old female with past medical history significant for dyslipidemia, hypertension, coronary artery disease, degenerative joint disease. Patient presents to the emergency room due to left shoulder and scapular pain this started in the morning patient try various things to help but only got worse over the course of the day patient [facility] she decided to come to the emergency room for evaluation in emergency room patient was found to have mild elevation of troponins. Patient denies any palpitations, dizziness, near-syncope, syncope, lightheadedness, PND, orthopnea, leg swelling, ankle swelling, nausea vomiting diarrhea or abdominal pain, no cough no sputum production. Preliminary workup was significant for mild elevation of troponin. Patient has been admitted for further evaluation, management and treatment. Review of Systems Review of Systems: Left shoulder and scapular pain. Constitutional: Constitutional: Denies chills, Denies fatigue, Denies fever(s), Denies malaise, Denies night sweats, Denies poor appetite and Denies weakness Eyes: Eyes: Denies change in vision ENT: Denies dysphagia, Denies vertigo, Denies dizziness, Denies nasal congestion, Denies nasal discharge, Denies nasal obstruction and Denies odynophagia Cardiovascular: Cardiovascular: Denies chest pain, Denies chest pain at rest, Denies pedal edema, Denies claudication, Denies leg edema, Reports radiating jaw, neck or arm pain, Denies palpitations, Denies dyspnea on exertion, Denies orthopnea and Denies paroxysmal nocturnal dyspnea Respiratory: Respiratory: Denies cough and Denies excessive phlegm production Gastrointestinal: Gastrointestinal: Denies dyspepsia, Denies heartburn, Denies diarrhea and Denies vomiting Genitourinary: Genitourinary: Denies dysuria Musculoskeletal: Musculoskeletal: Reports arthralgias (Left shoulder) Integumentary/Breasts: Skin/Breast: Denies rash Neurologic: Denies vertigo, Denies dizziness, Denies focal weakness and Denies Sensory deficit (Neuro) Psychiatric: Psychiatric: Reports no additional psychiatric complaints and Reports as per HPI Endocrine: Endocrine: Denies cold intolerance, Denies fatigue, Denies flushing, Denies heat intolerance, Denies polyphagia, Denies polydipsia and Denies palpitations Hematologic/Lymphatic: Hematologic/Lymphatic: Reports no additional hematologic/lymphatic complaints and Reports as per HPI Allergic/Immunologic: Allergic/Immunologic: Reports no additional allergic/immunologic complaints and Reports as per HPI PMFSH Past Medical History Medical History CKD (chronic kidney disease), stage III 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 Gout Hypertension PND (post-nasal drip) Surgical History Surgical History History of hysterectomy History of tonsillectomy Status post cataract extraction Family History Family History Father Family history of lung cancer Mother Family history of lung cancer Social History Social History Social History: The patient lives home alone. She is . 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 The patient is a lifelong nonsmoker. She does not use any alcohol marijuana or illicit drugs. Smoking status: Never smoker Second hand tobacco smoke exposure: No Alcohol intake: never Substance use: never Substance use type: does not use Gender identity (if verbalized by the patient): Female Sexual Orientation (i
[2021-10-07] MEDS: ENOXAPARIN 100 MG/ML SYRINGE SUB-Q (22:47)
[2021-10-07 23:57] LABS: SARS-CoV-2 RNA PCR Negative
[2021-10-08] VITALS (18 sets, daily range): BP systolic 141–184; BP diastolic 58–100; PULSE 57–115; RESP 12–20; TEMP 36.2–37; O2SAT 94–98; BMI 37.0
[2021-10-08] MEDS: HYDROcodone/acetaminophen (*CRX) 5-325 MG TABLET 1 TAB PO ×4 (02:15→20:04)
--- NOTE | 2021-10-08 02:21 | ADMGEN ---
This patient, Dahiana Polo, was admitted to IMU Room 206-01 at 0215. Patient/family oriented to hospital policies and general routines including ID bracelet, bed and alarms, visiting hours, pain management, procedures, bathroom and other care routines, personal items, smoking policy, room service/diet, and visiting hours. Information on how to activate the Rapid Response Team has been discussed. Patient/Family are encouraged to report perceived risks to care and to ask questions if they do not understand what they are told or what they should do.
--- NOTE | 2021-10-08 08:24 | PM.IMPN ---
Progress Note: A&P Assessment and Plan (1) Elevated troponin: Code(s): R77.8 - Other specified abnormalities of plasma proteins Status: Acute Assessment and Plan: Troponin rising. No EKG changes. Patient currently asymptomatic. -Check troponin -Appreciate recommendations from Cardiology (2) Chronic kidney disease (CKD) stage G3b/A1, moderately decreased glomerular filtration rate (GFR) between 30-44 mL/min/1.73 square meter and albuminuria creatinine ratio less than 30 mg/g: Code(s): N18.3 - Chronic kidney disease, stage 3 (moderate) Status: Acute Assessment and Plan: Stable. (3) Emphysema lung: Code(s): J43.9 - Emphysema, unspecified Status: Acute Assessment and Plan: Stable w/ no signs of COPD exacerbation. (4) Pain, joint, shoulder, left: Code(s): M25.512 - Pain in left shoulder Status: Acute Assessment and Plan: Tylenol as needed. Subjective Date/time seen: Date of Service 10/08/21 08:24 Patient denies having chest pain, shortness of breath, vision changes, nausea, vomiting. She says she was given nitroglycerin which made her nauseous. She really wants to eat. Review of Systems Cardiovascular: Cardiovascular: Denies chest pain, Denies lightheadedness and Denies palpitations Respiratory: Respiratory: Denies dyspnea Gastrointestinal: Gastrointestinal: Denies nausea and Denies vomiting Exam Narrative: GENERAL: NAD, cooperative HEENT: Normocephalic, atraumatic, anicteric, nares clear, oropharynx moist and clear, dentition ok NECK: Supple CV: Normal S1, S2, RRR, No MRG RESP: CTAB, Normal work of breathing. Abdomen: Soft, non-tender, non-distended EXTREMITIES: Warm and well perfused, no clubbing, cyanosis. SKIN: warm, dry and intact. NEURO: CN 2-12 grossly intact. Objective Data Vital Signs Vital Signs: Vital Signs - 24 hr 10/07/21 14:47 10/07/21 19:06 10/07/21 20:54 Temperature 98.1 F Pulse Rate 67 86 78 Respiratory Rate 16 19 12 Blood Pressure 194/80 H 162/122 H 208/95 H Pulse Oximetry 100 92 99 10/08/21 00:00 10/08/21 01:53 10/08/21 02:00 Temperature Pulse Rate 96 85 88 Respiratory Rate 20 Blood Pressure 165/100 H Pulse Oximetry 98 10/08/21 02:16 10/08/21 04:00 10/08/21 06:00 Temperature 97.8 F 98.1 F Pulse Rate 76 115 H 77 Respiratory Rate 20 12 Blood Pressure 184/82 H 167/88 H Pulse Oximetry 98 98 10/08/21 07:57 Temperature 98.5 F Pulse Rate 73 Respiratory Rate 20 Blood Pressure 175/88 H Pulse Oximetry 95 Intake/Output Intake/Output: Intake & Output 10/05/21 10/06/21 10/07/21 10/08/21 23:59 23:59 23:59 23:59 Intake Total 0 Output Total 300 Balance -300 Meds/Results Medications: Active Medications Generic Name Dose Route Start Last Admin Trade Name Freq PRN Reason Stop Dose Admin Acetaminophen 650 mg 10/07/21 22:09 Acetaminophen 325 Mg Tablet PO Q4H PRN Mild Pain (1-3) or Fever Hydrocodone Bitart/Acetaminophen 1 tab 10/07/21 22:09 10/08/21 06:40 Hydrocodone/Acetaminophen (*Crx) 5-325 Mg Tablet PO 1 tab Q4H PRN Administration Pain Rated 4-6 Amlodipine Besylate 10 mg 10/08/21 09:00 Amlodipine Besylate 5 Mg Tablet PO DAILY [facility] Ascorbic Acid 500 mg 10/08/21 09:00 Ascorbic Acid 500 Mg Tablet PO QAM [facility] Aspirin 81 mg 10/08/21 09:00 Aspirin 81 Mg Enteric Tablet PO DAILY [facility] Atorvastatin Calcium 40 mg 10/08/21 09:00 Atorvastatin 40 Mg Tablet PO DAILY [facility] Cyanocobalamin 1,000 mcg 10/08/21 09:00 Cyanocobalamin 1,000 Mcg Tablet PO 11/07/21 08:59 DAILY [facility] Diclofenac Sodium 75 mg 10/08/21 08:00 Diclofenac Sod 75 Mg Tablet.Ec PO BIDWM [facility] Hydrochlorothiazide 12.5 mg 10/08/21 09:00 Hydrochlorothiazide 12.5 Mg Capsule PO DAILY [facility] Acetaminophen 1,000 mg in 100 mls @ 400 mls/hr 10/07/21 22:09 Ofirmev 1,000 Mg Ivpb IVPB 10/08
[2021-10-08] MEDS: CYANOCOBALAMIN 1,000 MCG TABLET 1000 MCG PO (09:09)
[2021-10-08] MEDS: ASPIRIN 81 MG ENTERIC TABLET PO (09:09)
[2021-10-08] MEDS: METOPROLOL SUCCINATE EXT REL 25 MG TABCR PO (09:09)
[2021-10-08] MEDS: ASCORBIC ACID 500 MG TABLET PO (09:09)
[2021-10-08] MEDS: ATORVASTATIN 40 MG TABLET PO (09:09)
[2021-10-08] MEDS: amLODIPine BESYLATE 5 MG TABLET 10 MG PO (09:09)
[2021-10-08] MEDS: hydroCHLOROthiazide 12.5 MG CAPSULE PO (09:09)
[2021-10-08] MEDS: PANTOPRAZOLE 40 MG TABLET PO (09:09)
[2021-10-08] MEDS: DICLOFENAC SOD 75 MG TABLET.EC PO ×2 (09:10→17:24)
[2021-10-08] MEDS: LIDOCAINE 5% PATCH 1 PATCH TRANSDERM (11:48)
--- NOTE | 2021-10-08 15:15 | PM.CNCAR ---
Assessment and Plan Assessment and plan (1) Elevated troponin: Code(s): R77.8 - Other specified abnormalities of plasma proteins Status: Acute Assessment and Plan: Most likely type 2 infarction, however, cannot exclude underlying CAD. While her left shoulder pain appears to be musculoskeletal in etiology cannot entirely exclude may be an atypical anginal equivalent given elevated troponin and history of LV dysfunction., furthermore, very high blood pressure at presentation may have contributed to myocardial strain and troponin elevation consistent with a type 2 infarction not consistent with acute coronary syndrome and/or plaque rupture. Repeat troponin for further trend. Repeat 2D echocardiogram. The patient remains hospitalized over the weekend will obtain 2D echocardiogram and Lexiscan nuclear stress test for further evaluation depending on troponin trends. If significant troponin elevation coronary angiography may be warranted, however, patient has expressed desire to avoid invasive procedures and is not certain she would agree to a stress test either favoring conservative medical management. While I do not feel she is experiencing an NSTEMI, her trend is somewhat concerning unless repeat troponin is downward trending. As such, recommend aspirin and statin therapy. Beta-yesenia as heart rate permits. Monitor renal function electrolytes closely. Telemetry. DVT prophylaxis. If significant further troponin elevation 48 hours systemic anticoagulation may be considered but I would not recommend at this time. The above discussed at great length with the patient. Patient verbalized understanding and agreed with plan of care. All questions answered to her satisfaction. (2) Cardiomyopathy: Qualifiers: Cardiomyopathy type: other Qualified Code(s): I42.8 - Other cardiomyopathies Code(s): I42.9 - Cardiomyopathy, unspecified Status: Acute Assessment and Plan: History of mild to moderate LV dysfunction EF 40% by echocardiogram 11/2020 unbeknownst to the patient as she reports. Patient is currently well compensated NYHA class I sxs. Re-evaluation with repeat echocardiogram and recommendations to follow. (3) Hypertensive urgency: Code(s): I16.0 - Hypertensive urgency Status: Acute Assessment and Plan: BP better controlled although she remains hypertensive. Consider ARB or Mikey inhibitor as renal function permits. Minimize NSAIDs if possible. Low-sodium diet. Patient is not decompensated heart failure without evidence of acute end-organ damage as a result. (4) Pain, joint, shoulder, left: Code(s): M25.512 - Pain in left shoulder Status: Acute Assessment and Plan: As above. Pain control per primary service. Lidocaine patch, Tylenol, I would avoid NSAIDs if possible. (5) Chronic kidney disease (CKD) stage G3b/A1, moderately decreased glomerular filtration rate (GFR) between 30-44 mL/min/1.73 square meter and albuminuria creatinine ratio less than 30 mg/g: Code(s): N18.3 - Chronic kidney disease, stage 3 (moderate) Status: Acute Assessment and Plan: Monitor closely, stable. History of Present Illness History of Present Illness Consult date/time: Date of service: 10/08/21 15:15 Cardiology consultation at the request of Dr. Blackburn for opinion regarding elevated troponin and left shoulder pain. Requesting physician: Jesi Blackburn MD Consult reason: Other (Elevated troponin) Reason For Visit: Chest Pain, Elevated Troponin Narrative: PATIENT IS A VERY PLEASANT 86-YEAR-OLD FEMALE WITH A PAST MEDICAL HISTORY SIGNIFICANT FOR HYPERTENSION, HYPERLIPIDEMIA, OSTEOARTHRITIS, CHRONIC BACK PAIN WHO PRESENTED TO THE EMERGENCY DEPARTMENT WITH RESISTED LEFT SHOULDER AND SCAPULAR PAIN THAT PROGRESSED THROUGHOUT THE DAY. PATIENT DENIES CHEST PAIN OR SHORTNESS OF BREATH AT ANY TIME. SHE DENIES ANY PRIOR HISTORY OF CAD, MYOCARDIAL INFARCTION, CHF,
[2021-10-08 15:44] LABS: Troponin I 0.032 ng/mL (0.000-0.034)
[2021-10-09] VITALS (17 sets, daily range): BP systolic 117–176; BP diastolic 50–106; PULSE 51–78; RESP 14–22; TEMP 36.3–36.9; O2SAT 95–99
[2021-10-09] MEDS: HYDROcodone/acetaminophen (*CRX) 5-325 MG TABLET 1 TAB PO ×3 (00:08→23:24)
[2021-10-09] MEDS: LIDOCAINE 5% PATCH 1 PATCH TRANSDERM (09:00)
[2021-10-09] MEDS: amLODIPine BESYLATE 5 MG TABLET 10 MG PO (09:02)
[2021-10-09] MEDS: PANTOPRAZOLE 40 MG TABLET PO (09:02)
[2021-10-09] MEDS: METOPROLOL SUCCINATE EXT REL 25 MG TABCR PO (09:02)
[2021-10-09] MEDS: ASPIRIN 81 MG ENTERIC TABLET PO (09:02)
[2021-10-09] MEDS: hydroCHLOROthiazide 12.5 MG CAPSULE PO (09:02)
[2021-10-09] MEDS: CYANOCOBALAMIN 1,000 MCG TABLET 1000 MCG PO (09:02)
[2021-10-09] MEDS: ATORVASTATIN 40 MG TABLET PO (09:02)
[2021-10-09] MEDS: ASCORBIC ACID 500 MG TABLET PO (09:02)
[2021-10-09] MEDS: DICLOFENAC SOD 75 MG TABLET.EC PO ×2 (09:03→16:23)
[2021-10-09 09:29] LABS: Basophils Absolute Auto 0.1 K/mm3 (0.0-0.1); Basophils Percent Auto 0.6 % (0.2-1.2); Eosinophils Absolute Auto 0.3 K/mm3 (0-0.3); Eosinophils Percent Auto 2.8 % (0-4.4); Hematocrit 39.3 % (37.0-47.0); Hemoglobin 12.8 g/dL (12.0-15.0); Immature Granulocyte Absolute 0.03 K/mm3 (0.00-0.031); Immature Granulocyte Percent A 0.3 % (0-0.5); Lymphocytes Absolute Auto 3.29 K/mm3 (0.9-3.2); Mean Corpuscular HGB Conc 32.6 g/dl (32-36); Mean Corpuscular Hemoglobin 30.3 pg (26-34); Mean Corpuscular Volume 93.1 fl (80-100); Monocytes Absolute Auto 0.8 K/mm3 (0.1-0.6); Monocytes Percent Auto 8.1 % (2.6-8.5); Neutrophils Percent Auto 53.2 % (45.5-73.1); Platelet Count Result 255 k/mm3 (150-375); Red Blood Count 4.22 M/mm3 (4.2-5.4); Red Cell Distribution Width 12.7 % (11.5-14.5); White Blood Count 9.4 K/mm3 (4.5-10.0)
[2021-10-09 09:41] LABS: Anion Gap 5 mmol/L (8-16); Blood Urea Nitrogen 29 mg/dL (7-17); Calcium 9.1 mg/dL (8.4-10.2); Carbon Dioxide 29 mmol/L (22-30); Chloride 102 mmol/L (98-107); Estimated CRCL calculation 31 ml/min; Estimated Glomerular Filt Rate 39; Glucose 104 mg/dL (65-110); Potassium 4.3 mmol/L (3.4-5.0); Sodium 136 mmol/L (137-145)
--- NOTE | 2021-10-09 14:25 | PM.IMPN ---
Progress Note: A&P Assessment and Plan (1) Elevated troponin: Code(s): R77.8 - Other specified abnormalities of plasma proteins Status: Acute Assessment and Plan: Troponin normal on recheck No EKG changes. Patient currently asymptomatic. -Appreciate recommendations from Cardiology -Discharge held as patient is waiting to have echo, which may not happen until Sunday (2) Chronic kidney disease (CKD) stage G3b/A1, moderately decreased glomerular filtration rate (GFR) between 30-44 mL/min/1.73 square meter and albuminuria creatinine ratio less than 30 mg/g: Code(s): N18.3 - Chronic kidney disease, stage 3 (moderate) Status: Acute Assessment and Plan: Stable. (3) Emphysema lung: Code(s): J43.9 - Emphysema, unspecified Status: Acute Assessment and Plan: Stable w/ no signs of COPD exacerbation. (4) Pain, joint, shoulder, left: Code(s): M25.512 - Pain in left shoulder Status: Acute Assessment and Plan: Tylenol as needed. Lidocaine patch Subjective Date/time seen: Date of Service 10/09/21 0915 Patient denies chest pain, SOB, palpitations. Has persistent back pain over her left scapula. Review of Systems Cardiovascular: Cardiovascular: Denies chest pain and Denies palpitations Respiratory: Respiratory: Denies dyspnea Musculoskeletal: Musculoskeletal: Reports back pain Exam Narrative: GENERAL: NAD, cooperative HEENT: Normocephalic, atraumatic, anicteric NECK: Supple CV: Normal S1, S2, RRR, No MRG RESP: CTAB, Normal work of breathing. Back: TTP over left scapula EXTREMITIES: Warm and well perfused, no clubbing, cyanosis SKIN: warm, dry and intact. NEURO:Mental Status: CN 2-12 grossly intact. Objective Data Vital Signs Vital Signs: Vital Signs - 24 hr 10/08/21 16:00 10/08/21 18:00 10/08/21 20:00 Temperature 98.6 F 97.3 F L Pulse Rate 62 67 62 Respiratory Rate 20 20 Blood Pressure 149/67 H 141/83 H Pulse Oximetry 96 94 10/08/21 22:00 10/08/21 23:39 10/08/21 23:58 Temperature 97.1 F L Pulse Rate 58 L 68 68 Respiratory Rate 20 20 Blood Pressure 156/65 H Pulse Oximetry 97 97 10/09/21 00:00 10/09/21 02:00 10/09/21 04:00 Temperature 97.9 F Pulse Rate 64 53 L 61 Respiratory Rate 22 H Blood Pressure 148/106 H Pulse Oximetry 98 10/09/21 04:13 10/09/21 06:00 10/09/21 08:00 Temperature 98.5 F Pulse Rate 53 L 77 Respiratory Rate 14 Blood Pressure 158/82 H Pulse Oximetry 96 97 10/09/21 09:02 10/09/21 10:00 10/09/21 12:00 Temperature 97.5 F L Pulse Rate 77 73 52 L Respiratory Rate 16 Blood Pressure 176/69 H Pulse Oximetry 96 Intake/Output Intake/Output: Intake & Output 10/06/21 10/07/21 10/08/21 10/09/21 23:59 23:59 23:59 23:59 Intake Total 540 740 Output Total 500 950 Balance 40 -210 Meds/Results Medications: Active Medications Generic Name Dose Route Start Last Admin Trade Name Freq PRN Reason Stop Dose Admin Acetaminophen 650 mg 10/07/21 22:09 Acetaminophen 325 Mg Tablet PO Q4H PRN Mild Pain (1-3) or Fever Hydrocodone Bitart/Acetaminophen 1 tab 10/07/21 22:09 10/09/21 04:18 Hydrocodone/Acetaminophen (*Crx) 5-325 Mg Tablet PO 1 tab Q4H PRN Administration Pain Rated 4-6 Amlodipine Besylate 10 mg 10/08/21 09:00 10/09/21 09:02 Amlodipine Besylate 5 Mg Tablet PO 10 mg DAILY [facility] Administration Ascorbic Acid 500 mg 10/08/21 09:00 10/09/21 09:02 Ascorbic Acid 500 Mg Tablet PO 500 mg QAM [facility] Administration Aspirin 81 mg 10/08/21 09:00 10/09/21 09:02 Aspirin 81 Mg Enteric Tablet PO 81 mg DAILY [facility] Administration Atorvastatin Calcium 40 mg 10/08/21 09:00 10/09/21 09:02 Atorvastatin 40 Mg Tablet PO 40 mg DAILY [facility] Administration Cyanocobalamin 1,000 mcg 10/08/21 09:00 10/09/21 09:02 Cyanocobalamin 1,000 Mcg Tablet PO 11/07/21 08:59 1,000 mcg DAILY [facility] Admi
--- NOTE | 2021-10-09 15:50 | PM.PNCARD ---
Progress Note: A&P Assessment and Plan (1) Elevated troponin: Code(s): R77.8 - Other specified abnormalities of plasma proteins Status: Acute Assessment and Plan: Most likely type 2 infarction, however, cannot exclude underlying CAD. While her left shoulder pain appears to be musculoskeletal in etiology cannot entirely exclude may be an atypical anginal equivalent given elevated troponin and history of LV dysfunction., furthermore, very high blood pressure at presentation may have contributed to myocardial strain and troponin elevation consistent with a type 2 infarction not consistent with acute coronary syndrome and/or plaque rupture. Repeat troponin downward trending, - Repeat 2D echocardiogram in a.m. to reassess LV function, wall motion abnormalities, valve pathology pulmonary pressures. I have expressed my concern given patient presentation she may have underlying CAD and that I would recommend ischemic evaluation if she agrees. She is patient states she is not interested in proceeding with angiography nor is she willing to agree to noninvasive ischemic evaluation. While I do not feel she is experiencing an NSTEMI, her trend is somewhat concerning in light of her history. As such, recommend aspirin and statin therapy. Beta-yesenia as heart rate permits. Monitor renal function electrolytes closely. Telemetry. DVT prophylaxis. If significant further troponin elevation 48 hours systemic anticoagulation may be considered but I would not recommend at this time. The above discussed at great length with the patient. Patient verbalized understanding and agreed with plan of care. All questions answered to her satisfaction. (2) Cardiomyopathy: Qualifiers: Cardiomyopathy type: other Qualified Code(s): I42.8 - Other cardiomyopathies Code(s): I42.9 - Cardiomyopathy, unspecified Status: Acute Assessment and Plan: History of mild to moderate LV dysfunction EF 40% by echocardiogram 11/2020 unbeknownst to the patient as she reports. Patient is currently well compensated NYHA class I sxs. Re-evaluation with repeat echocardiogram and recommendations to follow. -add losartan 25 mg daily, monitor renal function closely. (3) Hypertensive urgency: Code(s): I16.0 - Hypertensive urgency Status: Acute Assessment and Plan: BP better controlled although she remains hypertensive. Consider ARB or Mikey inhibitor as renal function permits. Minimize NSAIDs if possible. Low-sodium diet. Patient is not decompensated heart failure without evidence of acute end-organ damage as a result. (4) Pain, joint, shoulder, left: Code(s): M25.512 - Pain in left shoulder Status: Acute Assessment and Plan: As above. Pain control per primary service. Lidocaine patch, Tylenol, I would avoid NSAIDs if possible. All this is most likely musculoskeletal in nature concerning that this is exacerbated with any activity improved at rest in light of previous notation of LV dysfunction and elevated troponin this hospitalization. (5) Chronic kidney disease (CKD) stage G3b/A1, moderately decreased glomerular filtration rate (GFR) between 30-44 mL/min/1.73 square meter and albuminuria creatinine ratio less than 30 mg/g: Code(s): N18.3 - Chronic kidney disease, stage 3 (moderate) Status: Acute Assessment and Plan: Monitor closely, stable. Subjective Date/time seen: Date of service: 10/09/21 15:50 Follow-up for back pain, elevated troponin, uncontrolled hypertension Patient states she feels fairly well. Back pain is much improved overall but notes that with any activity increases to level 5/10. Feels lidocaine patch is helping. Denies shortness of breath. Blood pressure remains elevated. No dizziness or lightheadedness. Review of Systems Review of Systems: All systems reviewed & are unremarkable except as noted in HPI and below Constitutional: Constitutional: Reports as
[2021-10-09] MEDS: methocarbamoL 500 MG TABLET PO (17:49)
[2021-10-10] VITALS (9 sets, daily range): BP systolic 127–148; BP diastolic 59–100; PULSE 50–70; RESP 18–20; TEMP 36.1–36.7; O2SAT 96–100
[2021-10-10] MEDS: LIDOCAINE 5% PATCH 1 PATCH TRANSDERM (09:20)
[2021-10-10] MEDS: amLODIPine BESYLATE 5 MG TABLET 10 MG PO (09:21)
[2021-10-10] MEDS: DICLOFENAC SOD 75 MG TABLET.EC PO (09:21)
[2021-10-10] MEDS: methocarbamoL 500 MG TABLET PO (09:21)
[2021-10-10] MEDS: ASPIRIN 81 MG ENTERIC TABLET PO (09:22)
[2021-10-10] MEDS: ATORVASTATIN 40 MG TABLET PO (09:22)
[2021-10-10] MEDS: PANTOPRAZOLE 40 MG TABLET PO (09:22)
[2021-10-10] MEDS: LOSARTAN POTASSIUM 25 MG TABLET PO (09:22)
[2021-10-10] MEDS: ASCORBIC ACID 500 MG TABLET PO (09:22)
[2021-10-10] MEDS: hydroCHLOROthiazide 12.5 MG CAPSULE PO (09:22)
[2021-10-10] MEDS: CYANOCOBALAMIN 1,000 MCG TABLET 1000 MCG PO (09:22)
[2021-10-10] MEDS: METOPROLOL SUCCINATE EXT REL 25 MG TABCR PO (09:23)
--- NOTE | 2021-10-10 10:09 | PM.PNCARD ---
Progress Note: A&P Assessment and Plan (1) Elevated troponin: Code(s): R77.8 - Other specified abnormalities of plasma proteins Status: Acute Assessment and Plan: Probably non ACS, although underlying CAD cannot be completely ruled out. Patient has not been interested in ischemic evaluation. Echocardiogram is pending to assess LV function and wall motion. Continue current medical treatment including aspirin, statin, beta-yesenia. (2) Cardiomyopathy: Qualifiers: Cardiomyopathy type: other Qualified Code(s): I42.8 - Other cardiomyopathies Code(s): I42.9 - Cardiomyopathy, unspecified Status: Acute Assessment and Plan: History of mild to moderate LV dysfunction EF 40% by echocardiogram 11/2020. Repeat echo pending. ARB has been added. (3) Hypertensive urgency: Code(s): I16.0 - Hypertensive urgency Status: Acute Assessment and Plan: BP better controlled. Continue current antihypertensives. (4) Pain, joint, shoulder, left: Code(s): M25.512 - Pain in left shoulder Status: Acute Assessment and Plan: Pain control per primary service. Avoid NSAIDs. (5) Chronic kidney disease (CKD) stage G3b/A1, moderately decreased glomerular filtration rate (GFR) between 30-44 mL/min/1.73 square meter and albuminuria creatinine ratio less than 30 mg/g: Code(s): N18.3 - Chronic kidney disease, stage 3 (moderate) Status: Acute Assessment and Plan: Monitor closely, stable. Subjective Date/time seen: 10/10/21 10:09 Date of service: 10/10/2021 Interval history: Patient denies chest pain, however she reports back pain. No shortness of breath. On telemetry, patient sinus rhythm. Echo pending. Exam Narrative: PHYSICAL EXAMINATION: GENERAL: Alert, oriented, no acute distress MENTAL STATUS: affect appropriate to mood EYES: Extraocular movements intact, no pallor EARS: External ears appear normal, hearing grossly normal NOSE: Normal and patent, no discharge MOUTH: Mucous membranes moist, tongue normal NECK: Supple, no JVD CHEST: Good respiratory effort, clear to auscultation HEART: Normal rate, regular rhythm, normal S1 and S2 ABDOMEN: Soft, nontender NEUROLOGICAL: Alert, oriented, normal speech, no gross motor deficits MUSCULOSKELETAL: No major deformity, no amputation EXTREMITIES: No pedal edema, no clubbing, no cyanosis SKIN: no rash on the exposed area, no cyanosis PSYCHIATRIC: Normal mood, appropriate affect Objective Data Vital Signs Vital Signs: Vital Signs - 24 hr 10/09/21 12:00 10/09/21 14:00 10/09/21 16:00 Temperature 36.4 C L 36.7 C Pulse Rate 52 L 55 L 51 L Respiratory Rate 16 18 Blood Pressure 176/69 H 151/65 H Pulse Oximetry 96 95 10/09/21 18:00 10/09/21 19:59 10/09/21 20:00 Temperature 36.3 C L Pulse Rate 53 L 54 L 51 L Respiratory Rate 20 20 Blood Pressure 117/63 Pulse Oximetry 99 99 10/09/21 21:38 10/09/21 23:17 10/09/21 23:50 Temperature 36.4 C Pulse Rate 58 L 58 L 58 L Respiratory Rate 20 20 Blood Pressure 147/50 H Pulse Oximetry 97 97 10/10/21 00:00 10/10/21 01:17 10/10/21 04:00 Temperature 36.5 C Pulse Rate 53 L 52 L 56 L Respiratory Rate 20 Blood Pressure 136/73 Pulse Oximetry 98 10/10/21 05:33 10/10/21 08:00 10/10/21 08:39 Temperature 36.7 C Pulse Rate 61 70 Respiratory Rate 18 Blood Pressure 127/100 H Pulse Oximetry 100 96 10/10/21 09:23 Temperature Pulse Rate 62 Respiratory Rate Blood Pressure Pulse Oximetry Intake/Output Intake/Output: Intake & Output 10/07/21 10/08/21 10/09/21 10/10/21 23:59 23:59 23:59 23:59 Intake Total 540 1040 Output Total 500 2400 1050 Balance 40 -1360 -1050 Meds/Results Medications: Active Medications Generic Name Dose Route Start Last Admin Trade Name Freq PRN Reason Stop Dose Admin Acetaminophen 650 mg 10/07/21 22:09 Acetaminophen 325 Mg Tablet PO
--- NOTE | 2021-10-10 10:36 | PM.DS ---
DS: Admitting Diagnosis Discharge Date 10/10/2021 Admitting Diagnosis Chest pain DS: Discharge Diagnosis Discharge Diagnosis (1) Elevated troponin: Code(s): R77.8 - Other specified abnormalities of plasma proteins Status: Acute Assessment and Plan: Troponin normal on recheck No EKG changes. Patient currently asymptomatic. Most likely NSTEMI type 2 secondary to demand ischemia secondary to elevated blood pressure follow-up with cardiology as output -Appreciate recommendations from Cardiology -medication adjusted continue aspirin statin beta-yesenia and added losartan follow renal function in 3 days (2) Chronic kidney disease (CKD) stage G3b/A1, moderately decreased glomerular filtration rate (GFR) between 30-44 mL/min/1.73 square meter and albuminuria creatinine ratio less than 30 mg/g: Code(s): N18.3 - Chronic kidney disease, stage 3 (moderate) Status: Acute Assessment and Plan: Stable. CMP in 3 (3) Emphysema lung: Code(s): J43.9 - Emphysema, unspecified Status: Acute Assessment and Plan: Stable w/ no signs of COPD exacerbation. (4) Pain, joint, shoulder, left: Code(s): M25.512 - Pain in left shoulder Status: Acute Assessment and Plan: Tylenol as needed. Lidocaine patch Lyndon p.r.n.. Counseling DS: Summary Hospital Course Hospital Course: Patient is a an 86-year-old female with past medical history significant for dyslipidemia, hypertension, coronary artery disease, degenerative joint disease. Patient presents to the emergency room due to left shoulder and scapular pain, on admission blood pressure was above 200 systolic troponin was elevated cardiology was consulted echo was done blood pressure medication was adjusted losartan was added cardiology recommended to monitor renal function closely follow CBC and CMP as outpatient. Time Spent with Patient Time attestation: Total time spent providing and/or coordinating discharge services: Exam Narrative: GENERAL: NAD, cooperative HEENT: Normocephalic, atraumatic, anicteric NECK: Supple CV: Normal S1, S2, RRR, No MRG RESP: CTAB, Normal work of breathing. Back: TTP over left scapula EXTREMITIES: Warm and well perfused, no clubbing, cyanosis SKIN: warm, dry and intact. NEURO:Mental Status: CN 2-12 grossly intact. Discharge Plan Discharge Attending physician on discharge: Tadeo Mejia M.A. Consulting providers: Justice Fermin Discharging Clinician: Tadeo Mejia M.A. Patient Disposition: Home, Self-Care Activity: as tolerated Diet: heart healthy Patient Instructions: Antibiotic Form, Acute Bronchitis (GEN) Stand Alone Forms: General Discharge Information Follow-up/Referrals: Brian Dugan MD [Primary Care Provider] - Justice Fermin MD [Physician] - Discharge Medications: New hydrocodone-acetaminophen 5-325 mg Tablet 1 tablet PO Q4H PRN (Reason: Pain Rated 4-6) Qty: 5 RF: 0 lidocaine [Lidoderm] 5 % Adhesive Patch,Medicated 1 patch transdermal DAILY Qty: 30 RF: 0 losartan 25 mg Tablet 25 mg PO DAILY Qty: 30 RF: 0 methocarbamol 500 mg Tablet 500 mg PO TID PRN (Reason: musculoskeletal pain) Qty: 10 RF: 0 Continued metoprolol succinate [Toprol XL] 25 mg tablet extended release 24 hr 25 mg PO DAILY Qty: 90 RF: 3 hydrochlorothiazide 12.5 mg tablet 12.5 mg PO DAILY Qty: 90 RF: 2 aspirin [Aspir-81] 81 mg tablet,delayed release (DR/EC) 81 mg PO DAILY RF: 0 cyanocobalamin (vitamin B-12) 100 mcg tablet 1,000 mcg PO DAILY RF: 0 Bioflex 123-61-53-40 mg tablet 1 tablet PO DAILY RF: 0 diclofenac sodium 75 mg tablet,delayed release (DR/EC) 75 mg PO BID Qty: 180 RF: 2 atorvastatin 40 mg tablet 40 mg PO DAILY Qty: 90 RF: 2 amlodipine 10 mg tablet 10 mg PO DAILY Qty: 90 RF: 1 omeprazole 20 mg capsule,delayed release(DR/EC) See Rx Instructions .ROUTE .COMPLEX Qty: 90 RF: 3
[2021-10-10] MEDS: HYDROcodone/acetaminophen (*CRX) 5-325 MG TABLET 1 TAB PO (11:40)
--- NOTE | 2021-10-10 13:49 | ADMGEN ---
This patient, Dahiana Polo, was admitted to IMU Room 206-01 at 1335 on 10/10/2021. Report received from Coni VARGAS. Patient/family oriented to hospital policies and general routines including ID bracelet, bed and alarms, visiting hours, pain management, procedures, bathroom and other care routines, personal items, smoking policy, room service/diet, and visiting hours. Information on how to activate the Rapid Response Team has been discussed. Patient/Family are encouraged to report perceived risks to care and to ask questions if they do not understand what they are told or what they should do.
--- NOTE | 2021-10-10 15:19 | ECHO_ITS ---
Patient Info Name: Dahiana Polo Age: 86 years : 1935 Gender: Female Ht: 64 in Wt: 211 lbs BSA: 2.12 m2 HR: 61 bpm BP: 136 / 73 mmHg Heart Rhythm: Sinus Rhythm Technical Quality: Fair Exam Date: 10/10/2021 9:19 AM Exam Location: [facility] Pulmonary Patient Status: Outpatient Admit Date: 10/07/2021 Staff Ordering Physician: Justice Fermin MD Dragger Out: Barbara Charles RDCS Attending Provider: Jesi Blackburn MD Referring Physician: Zander HOLCOMB; Exam Type: CA echo doppler color flow Study Info Indications - elevated troponin Complete two-dimensional, color flow and Doppler transthoracic echocardiogram is performed. Summary 1. Complete two-dimensional, color flow and Doppler transthoracic echocardiogram is performed. 2. Normal LV size, mild LVH, normal LV systolic function, ejection fraction 60-65%, grade 1 diastolic dysfunction. Mild left atrial enlargement. Mild mitral valve thickening, no significant MR. Mild aortic valve sclerosis, mild stenosis, trivial AR. Trace TR, RVSP 30 mmHg. Left Ventricle Left ventricular chamber dimension is normal. Left ventricular systolic function is normal, estimated at 65-70%. There is mildly increased left ventricular wall thickness. The left ventricular diastolic function is grade I diastolic dysfunction. Right Ventricle Right ventricular chamber dimension is normal. Right ventricular systolic function is normal. Left Atria Left atrial chamber dimension is mildly enlarged. Right Atria Right atrial chamber dimension is normal. Aortic Valve There is mild aortic valve sclerosis. There is mild aortic valve stenosis with a peak velocity of 193 cm/s, mean gradient of 7 mmHg, and aortic valve area of 1.8 cm2. There is trace aortic valve regurgitation. Pulmonic Valve The pulmonic valve is normal. Mitral Valve The mitral valve has thickened leaflets. There is no mitral valve regurgitation. Tricuspid Valve The tricuspid valve leaflets are normal. There is trace tricuspid valve regurgitation. Pericardium/Pleural The pericardium appears epicardial fat pad. There is trivial pericardial effusion. Inferior Vena Cava Normal inferior vena cava with >50% collapse upon inspiration consistent with normal right atrial pressure, 10 mmHg. Aorta The aortic root size at the sinus of Valsalva is normal. Left Ventricular Outflow Tract Name Value Normal LVOT 2D LVOT Diameter 2.0 cm LVOT Doppler LVOT Peak Gradient 3 mmHg LVOT Mean Gradient 2 mmHg LVOT VTI 20 cm LVOT VTI/AV VTI Ratio 0.5 LVOT Stroke Volume 65 ml LVOT CO 3.8 l/min LVOT CI 1.8 l/min/m2 Pulmonic Valve Name Value Normal RVOT Doppler
== END 2021-10-10 15:55 | disposition home or self-care (01) ==
LOC: ANHED 19:30 → ANHIMU 10-08 02:57
PROVIDERS: Emergency Medicine; Family Medicine; Admitting Provider Internal Medicine; Emergency Provider Emergency Medicine; PCP Family Medicine; Visit Provider Internal Medicine
DX: R77.8 Other specified abnormalities of plasma proteins (principal); I16.0 Hypertensive urgency; I42.9 Cardiomyopathy, unspecified; I12.9 Hypertensive chronic kidney disease with stage 1 through stage 4 chronic kidney disease, or unspecified chronic kidney disease; N18.30 Chronic kidney disease, stage 3 unspecified; M25.512 Pain in left shoulder; I25.10 Atherosclerotic heart disease of native coronary artery without angina pectoris; J43.9 Emphysema, unspecified; M10.9 Gout, unspecified; Z20.822 Contact with and (suspected) exposure to COVID-19
CPT/HCPCS: 36415; 71045; 80048; 80053; 83690; 84484; 85025; 85610; 85730; 93005; 93306; 96372; 99285; A9270; C9803; G0378; J1650; U0003; U0005

== ENCOUNTER 2022-02-20 15:26 | Outpatient (CLI) | payer MEDICARE, SELFPAY ==
[2022-02-20 15:59] LABS: Basophils Absolute Auto 0.1 K/mm3 (0.0-0.1); Basophils Percent Auto 0.8 % (0.2-1.2); Eosinophils Absolute Auto 0.2 K/mm3 (0-0.3); Hematocrit 40.1 % (37.0-47.0); Hemoglobin 12.8 g/dL (12.0-15.0); Immature Granulocyte Absolute 0.07 K/mm3 (0.00-0.031); Immature Granulocyte Percent A 0.7 % (0-0.5); Lymphocytes Absolute Auto 3.22 K/mm3 (0.9-3.2); Lymphocytes Percent Auto 31.8 % (18.3-44.2); Mean Corpuscular HGB Conc 31.9 g/dl (32-36); Mean Corpuscular Hemoglobin 30.4 pg (26-34); Mean Corpuscular Volume 95.2 fl (80-100); Mean Platelet Volume 10.2 fl (7.4-10.4); Monocytes Absolute Auto 0.7 K/mm3 (0.1-0.6); Monocytes Percent Auto 7.3 % (2.6-8.5); Neutrophils Absolute Auto 5.8 K/mm3 (1.3-6.7); Neutrophils Percent Auto 57.4 % (45.5-73.1); Platelet Count Result 256 k/mm3 (150-375); Red Blood Count 4.21 M/mm3 (4.2-5.4); Red Cell Distribution Width 12.5 % (11.5-14.5); White Blood Count 10.1 K/mm3 (4.5-10.0)
[2022-02-20 16:02] LABS: Appearance Urine Clear (Clear); Bilirubin Urine Negative (Negative); Blood Urine Negative (Negative); Color Urine Yellow (Yellow); Glucose Urine UA Negative (Negative); Ketones Urine Negative (Negative); Leukocyte Esterase Ur Trace LEU/UL (NEGATIVE); Nitrate Urine Negative (Negative); Protein Urine Negative (Negative); Urobilinogen Urine 0.2 mg/dL (<2.0); pH Urine 5.5 (5.0-9.0)
[2022-02-20 16:26] LABS: Bacteria Urine 3+ /hpf; Mucus Urine Rare /lpf; RBC Urine 0-2 /hpf (0-2); Squamous Epithelial Cell Urine Few /hpf (Few)
[2022-02-20 16:28] LABS: Add Urine Microscopic? YES
[2022-02-20 16:50] LABS: Alanine Aminotransferase 14 U/L (6-35); Albumin Level 4.4 g/dL (3.5-5.1); Alkaline Phosphatase 114 U/L (38-126); Anion Gap 10 mmol/L (8-16); Aspartate Amino Transferase 27 U/L (14-36); Blood Urea Nitrogen 33 mg/dL (7-17); Calcium 8.9 mg/dL (8.4-10.2); Carbon Dioxide 25 mmol/L (22-30); Chloride 106 mmol/L (98-107); Cholesterol 245 mg/dL (0-200); Estimated Glomerular Filt Rate 43; Glucose 98 mg/dL (65-110); HDL Direct 47 mg/dL; Potassium 4.4 mmol/L (3.4-5.0); Sodium 141 mmol/L (137-145); Triglycerides 256 mg/dL (<150)
[2022-02-20 17:01] LABS: LDL Cholesterol Direct 111 mg/dL
== END 2022-02-20 15:27 | disposition home or self-care (01) ==
PROVIDERS: PCP Family Medicine; Visit Provider Nurse Practitioner Family
DX: I42.9 Cardiomyopathy, unspecified (principal); E78.2 Mixed hyperlipidemia; E03.9 Hypothyroidism, unspecified; I12.9 Hypertensive chronic kidney disease with stage 1 through stage 4 chronic kidney disease, or unspecified chronic kidney disease; N18.30 Chronic kidney disease, stage 3 unspecified
CPT/HCPCS: 36415; 80053; 80061; 81001; 84443; 85025

== ENCOUNTER 2022-05-12 13:10 | Emergency (ER) | payer MEDICARE, SELFPAY ==
[2022-05-12 13:32] VITALS: BP 155/68; PULSE 70; RESP 16; TEMP 36.7; O2SAT 98
--- NOTE | 2022-05-12 13:48 | ED.SKABFB ---
HPI - Skin/Abscess/Foreign Bdy General Chief complaint: Skin/Abscess/Foreign Body Stated complaint: Rash under breasts and left armpit Time Seen by Provider: 05/12/22 13:37 Source: patient Mode of arrival: ambulatory Limitations: no limitations History of Present Illness HPI narrative: The patient presents today complaining of a pruritic erythematous rash under her bilateral breasts and left axilla. The rash under her breast has been present for more than 6 months, and the rash under her left axilla has been present for 1 month. He reports that she sweating a lot. She has been trying powders, diaper creams. She has been putting a handkerchief under her breasts to soak up a sweat. 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 None of these interventions have been helping. Related Data Home Medications Medication Instructions Recorded Confirmed aspirin 81 mg tablet,delayed 81 mg PO DAILY 06/18/19 05/12/22 release (Aspir-) cyanocobalamin (vitamin B-12) 100 1,000 mcg PO DAILY 06/18/19 05/12/22 mcg tablet vit 1 tablet PO DAILY 06/18/19 05/12/22 [id number] 500 mg-50 mg-25 mg-40 mg tablet (Bioflex) Allergies Allergy/AdvReac Type Severity Reaction Status Date / Time No Known Allergies Allergy Mild Verified 02/20/22 14:20 Review of Systems Review of Systems: CONSTITUTIONAL: Denies body aches, fever, chills, or sweats. EYES: Denies visual changes, redness, or discharge. ENT: Denies rhinorrhea, congestion, sore throat, or otalgia. CARDIOVASCULAR: Denies chest pain, palpitations, or edema. RESPIRATORY: Denies cough or dyspnea. GASTROINTESTINAL: Denies abdominal pain, nausea, vomiting, or diarrhea. GENITOURINARY: Denies dysuria or hematuria. SKIN: + Rash MUSCULOSKELETAL: Denies back pain, joint pain, or myalgia. NEUROLOGIC: Denies headache, numbness, tingling, or weakness. PSYCH: Denies depression or anxiety. 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 Gout Hypertension PND (post-nasal drip) Surgical History Surgical History History of hysterectomy History of tonsillectomy Status post cataract extraction Family History Family History Father Family history of lung cancer Mother Family history of lung cancer Social History Social History Social History: The patient lives home alone. She is . 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 She is a full code and desires to have her sister rishi collins and maribeth collins are listed as her durable power assistant county attorney for healthcare. The patient is a lifelong nonsmoker. She does not use any alcohol marijuana or illicit drugs. Smoking status: Never smoker Second hand tobacco smoke exposure: No Alcohol intake: never Substance use: never Substance use type: does not use Gender identity (if verbalized by the patient): Female Sexual Orientation (if Verbalized by the Patient): Straight or Heterosexual Spiritual care concerns: No Comments At time of signature, I have reviewed and agree with nursing past medical, surgical, social and family history unless otherwise noted. Please see nursing chart for further information. There is no relevant family history pertinent to the presenting complaint Exam Narrative: GENERAL: Well-appearing, well-nourished, and in no acute distress. HEAD: Normocephalic, atraumatic. EYES: EOMI. No redness or drainage. Conjunctivae normal. ENT: Mucous membranes pink and moist. NECK: Normal AROM. . CHEST: No respiratory distress. EXTREMITIES: Normal range of motion.
== END 2022-05-12 13:59 | disposition home or self-care (01) ==
PROVIDERS: Emergency Provider Nurse Practitioner; PCP Family Medicine
DX: B37.2 Candidiasis of skin and nail (principal); I12.9 Hypertensive chronic kidney disease with stage 1 through stage 4 chronic kidney disease, or unspecified chronic kidney disease; N18.30 Chronic kidney disease, stage 3 unspecified; M10.9 Gout, unspecified
CPT/HCPCS: 99211; G0463

== ENCOUNTER 2023-01-19 10:51 | Emergency (ER) | payer MEDICARE, SELFPAY ==
--- NOTE | ~2023-01-19 | XR_ITS ---
EXAMINATION: XR lumbar spine 2-3V DATE: 01/19/2023 12:07 INDICATION: Lumbar pain TECHNIQUE: Anteroposterior and lateral views of the lumbar spine, and cone-down lateral view of the l umbosacral junction were obtained. COMPARISON: 08/15/2021 FINDINGS: 10 degrees lumbar levoscoliosis. 4 mm retrolisthesis L1 on L2 and L2 on L3. Vertebral body heights ar e normal. Severe disc height loss with degenerative endplate changes at L1-L2 through L3-L4. Moderate disc height loss at L5-S1 and mild disc height loss at L4-L5, T12-L1 and multiple vertebral bodies i n the lower lumbar spine. Multilevel severe bilateral lumbar facet osteoarthritis. Mild to moderate b ilateral sacroiliac osteoarthritis. Atherosclerotic abdominal aorta. IMPRESSION: 1. No significant change in severe lumbar spondylosis. Reviewed, dictated and finalized at location A.
--- NOTE | ~2023-01-19 | XR_ITS ---
Right Knee Technique: AP, lateral, and sunrise views were obtained. Clinical History: Pain Findings: No fracture or dislocation is seen. There is severe osteoarthritis of the medial and patell ofemoral compartments. There is moderate degenerative change of the lateral compartment. Suspected in tra-articular loose bodies present. Small to moderate joint effusion is seen. Impression: Severe osteoarthritis throughout the knee, worst in the patellofemoral compartment. Suspected intra-articular loose bodies with small to moderate joint effusion present. Reviewed, dictated and finalized at location . Impression: Severe osteoarthritis throughout the knee, worst in the patellofemoral compartm ent. Suspected intra-articular loose bodies with small to moderate joint effusion pr esent.
[2023-01-19 10:51] VITALS: BP 197/87; PULSE 57; RESP 16; TEMP 36.7; O2SAT 96
[2023-01-19 11:47] VITALS: BP 158/142
[2023-01-19 16:02] VITALS: BP 116/84; PULSE 81; RESP 18; O2SAT 99
[2023-01-19 16:03] LABS: Basophils Absolute Auto 0.1 K/mm3 (0.0-0.1); Basophils Percent Auto 0.6 % (0.2-1.2); Eosinophils Absolute Auto 0.2 K/mm3 (0-0.3); Eosinophils Percent Auto 1.9 % (0-4.4); Hematocrit 40.9 % (37.0-47.0); Hemoglobin 13.2 g/dL (12.0-15.0); Immature Granulocyte Absolute 0.04 K/mm3 (0.00-0.031); Immature Granulocyte Percent A 0.4 % (0-0.5); Lymphocytes Percent Auto 30.2 % (18.3-44.2); Mean Corpuscular HGB Conc 32.3 g/dl (32-36); Mean Corpuscular Hemoglobin 30.8 pg (26-34); Mean Corpuscular Volume 95.3 fl (80-100); Mean Platelet Volume 10.3 fl (7.4-10.4); Monocytes Absolute Auto 0.6 K/mm3 (0.1-0.6); Monocytes Percent Auto 6.4 % (2.6-8.5); Neutrophils Absolute Auto 5.6 K/mm3 (1.3-6.7); Neutrophils Percent Auto 60.5 % (45.5-73.1); Platelet Count Result 217 k/mm3 (150-375); Red Blood Count 4.29 M/mm3 (4.2-5.4); Red Cell Distribution Width 12.1 % (11.5-14.5); White Blood Count 9.3 K/mm3 (4.5-10.0)
[2023-01-19 16:12] LABS: Alanine Aminotransferase 15 U/L (6-35); Alkaline Phosphatase 99 U/L (38-126); Anion Gap 8 mmol/L (8-16); Aspartate Amino Transferase 23 U/L (14-36); Bilirubin,Total 1.1 mg/dL (0.2-1.3); Blood Urea Nitrogen 21 mg/dL (7-17); Calcium 9.4 mg/dL (8.4-10.2); Carbon Dioxide 27 mmol/L (22-30); Chloride 106 mmol/L (98-107); Estimated Glomerular Filt Rate 47; Glucose 88 mg/dL (65-110); Potassium 4.2 mmol/L (3.4-5.0); Sodium 141 mmol/L (137-145)
[2023-01-19 16:14] LABS: Prothrombin Time 13.8 Seconds (11.1-14.7)
[2023-01-19 16:28] LABS: Erythrocyte Sedimentation Rate 22 mm/hr (0-20)
--- NOTE | 2023-01-19 16:51 | ED.GENADULT ---
HPI - General Adult General Chief complaint: Back Pain/Injury Stated complaint: Back pain Time Seen by Provider: 01/19/23 11:12 History of Present Illness HPI narrative: Patient is an 87-year-old female who presents ER with reports of lower extremity numbness as well as back pain. Reports back pain has been intermittent over the last month. Has been on the left side and the right side. Left side she is treated with lidocaine patches. Right side resolves anytime she takes Aleve or ibuprofen. She reports over the last week she has developed numbness in her lower extremities bilaterally up to the knee. She feels like it may be going towards her hip. Unable to report if it is ascending in nature. No prodrome of infection. Patient reports ambulatory inability due to numbness and pain. Typically ambulates with a walker. No fevers or chills or sweats. No difficulty controlling her urination/defecation. No saddle anesthesia. Patient denies any trauma/overexertion/fall. Related Data Home Medications Medication Instructions Recorded Confirmed aspirin 81 mg tablet,delayed 81 mg PO DAILY 06/18/19 12/13/22 release (Aspir-) cyanocobalamin (vitamin B-12) 100 1,000 mcg PO DAILY 06/18/19 12/13/22 mcg tablet vit 1 tablet PO DAILY 06/18/19 12/13/22 [id number] 500 mg-50 mg-25 mg-40 mg tablet (Bioflex) Allergies Allergy/AdvReac Type Severity Reaction Status Date / Time No Known Allergies Allergy Mild Verified 12/13/22 09:53 Review of Systems Review of Systems: All systems reviewed & are unremarkable except as noted in HPI and below Constitutional: Constitutional: Denies chills, Denies fatigue and Denies fever(s) ENT: Denies nasal congestion and Denies sore throat Cardiovascular: Cardiovascular: Denies chest pain, Denies rapid heart rate and Denies radiating jaw, neck or arm pain Respiratory: Respiratory: Denies cough and Denies dyspnea Gastrointestinal: Gastrointestinal: Denies abdominal pain, Denies nausea and Denies vomiting Musculoskeletal: Musculoskeletal: Reports back pain, Denies myalgias, Denies arthralgias and Denies joint swelling Integumentary/Breasts: Skin/Breast: Denies erythema and Denies rash Neurologic: Denies headache(s), Denies focal weakness and Reports numbness PMFSH Past Medical History Medical History CKD (chronic kidney disease), stage III 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 Gout Hypertension PND (post-nasal drip) Surgical History Surgical History History of hysterectomy History of tonsillectomy Status post cataract extraction Family History Family History Father Family history of lung cancer Mother Family history of lung cancer Social History Social History Social History: The patient lives home alone. She is . 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 The patient is a lifelong nonsmoker. She does not use any alcohol marijuana or illicit drugs. Smoking status: Never smoker Second hand tobacco smoke exposure: No Alcohol intake: never Substance use: never Substance use type: does not use Living arrangements: alone Occupation/Education: retired Gender identity (if verbalized by the patient): Female Sexual Orientation (if Verbalized by the Patient): Straight or Heterosexual Spiritual care concerns: No Exam Narrative: GENERAL: Well-appearing, well-nourished, and in no acute distress. HEAD: Normocephalic, atraumatic. EYES: PERRL and EOMI. ENT: Mucous membranes moist. NECK: Supple. CHEST: Clear to auscultation.
--- NOTE | 2023-01-19 17:23 | PC.NURSE ---
Spoke with [facility] transfer center.
--- NOTE | 2023-01-19 19:05 | PC.NURSE ---
This RN assumed care of patient.
--- NOTE | 2023-01-19 19:38 | PC.NURSE ---
[facility] transfer center called and wanted an update on the patient. Gave patient bed number at [place] of room 08877 Bed 1, accepting doctor is Dr. Pineda. Report number given was .
== END 2023-01-19 23:17 | disposition short-term general hospital (02) ==
PROVIDERS: Emergency Provider Emergency Medicine; PCP Family Medicine
DX: M17.0 Bilateral primary osteoarthritis of knee (principal); R20.0 Anesthesia of skin; I12.9 Hypertensive chronic kidney disease with stage 1 through stage 4 chronic kidney disease, or unspecified chronic kidney disease; N18.30 Chronic kidney disease, stage 3 unspecified; Z79.82 Long term (current) use of aspirin; Z79.899 Other long term (current) drug therapy
CPT/HCPCS: 36415; 72100; 73562; 80053; 85025; 85610; 85652; 85730; 99285

== ENCOUNTER 2023-09-03 10:31 | Outpatient (CLI) | payer MEDICARE, SELFPAY ==
[2023-09-03 11:14] LABS: Hematocrit 36.7 % (37.0-47.0); Hemoglobin 11.7 g/dL (12.0-15.0); Mean Corpuscular HGB Conc 31.9 g/dl (32-36); Mean Corpuscular Hemoglobin 30.5 pg (26-34); Mean Corpuscular Volume 95.6 fl (80-100); Mean Platelet Volume 10.4 fl (7.4-10.4); Platelet Count Result 234 k/mm3 (150-375); Red Blood Count 3.84 M/mm3 (4.2-5.4); Red Cell Distribution Width 12.3 % (11.5-14.5); White Blood Count 8.5 K/mm3 (4.5-10.0)
[2023-09-03 11:21] LABS: Appearance Urine Clear (Clear); Bacteria Urine 3+ /hpf; Bilirubin Urine Negative (Negative); Blood Urine Negative (Negative); Color Urine Yellow (Yellow); Glucose Urine UA Negative (Negative); Ketones Urine Negative (Negative); Leukocyte Esterase Ur 2+ LEU/UL (NEGATIVE); Nitrate Urine Positive (Negative); Non Pathogenic Casts 0-2; Protein Urine Negative (Negative); RBC Urine 0-2 /hpf (0-2); Specific Grav Ur 1.016 (1.001-1.035); Squamous Epithelial Cell Urine Occasional /hpf (Few); WBC Urine 21-50 /hpf (0-3)
[2023-09-03 11:32] LABS: Alanine Aminotransferase 11 U/L (6-35); Albumin Level 3.8 g/dL (3.5-5.1); Alkaline Phosphatase 99 U/L (38-126); Anion Gap 4 mmol/L (8-16); Aspartate Amino Transferase 26 U/L (14-36); Blood Urea Nitrogen 27 mg/dL (7-17); Calcium 8.9 mg/dL (8.4-10.2); Carbon Dioxide 28 mmol/L (22-30); Chloride 106 mmol/L (98-107); Cholesterol 134 mg/dL (0-200); Estimated Glomerular Filt Rate 52; Glucose 101 mg/dL (65-110); HDL Direct 38 mg/dL; Potassium 4.3 mmol/L (3.4-5.0); Sodium 138 mmol/L (137-145); Triglycerides 136 mg/dL (<150)
[2023-09-03 11:32] LABS: Add Urine Microscopic? YES
[2023-09-03 11:43] LABS: LDL Cholesterol Direct 66 mg/dL
== END 2023-09-03 10:32 | disposition home or self-care (01) ==
PROVIDERS: PCP Family Medicine; Visit Provider Family Medicine
DX: R09.02 Hypoxemia (principal); E78.2 Mixed hyperlipidemia; I12.9 Hypertensive chronic kidney disease with stage 1 through stage 4 chronic kidney disease, or unspecified chronic kidney disease; N18.30 Chronic kidney disease, stage 3 unspecified
CPT/HCPCS: 36415; 80053; 80061; 81001; 84443; 85027

== ENCOUNTER 2024-04-07 10:58 | Outpatient (CLI) | payer MEDICARE, SELFPAY ==
[2024-04-07 11:49] LABS: Alanine Aminotransferase 11 U/L (6-35); Albumin Level 4.1 g/dL (3.5-5.1); Alkaline Phosphatase 88 U/L (38-126); Anion Gap 5 mmol/L (4-12); Aspartate Amino Transferase 22 U/L (14-36); Blood Urea Nitrogen 25 mg/dL (7-17); Calcium 9.3 mg/dL (8.4-10.2); Carbon Dioxide 28 mmol/L (22-30); Chloride 108 mmol/L (98-107); Estimated Glomerular Filt Rate 42; Glucose 89 mg/dL (65-110); Sodium 141 mmol/L (137-145)
[2024-04-07 12:57] LABS: Folic Acid 13.2 ng/mL (2.76->20); Vitamin B12 > 1000.0 pg/mL (239-931)
== END 2024-04-07 10:59 | disposition home or self-care (01) ==
PROVIDERS: PCP Family Medicine; Visit Provider Family Medicine
DX: I12.9 Hypertensive chronic kidney disease with stage 1 through stage 4 chronic kidney disease, or unspecified chronic kidney disease (principal); E53.8 Deficiency of other specified B group vitamins
CPT/HCPCS: 36415; 80053; 82607; 82746

== ENCOUNTER 2024-08-22 07:51 | Emergency (ER) | payer MEDICARE, SELFPAY ==
[2024-08-22] VITALS (11 sets, daily range): BP systolic 136–160; BP diastolic 68–88; PULSE 41–52; RESP 13–23; TEMP 36.9; O2SAT 95–99
--- NOTE | ~2024-08-22 | XR_ITS ---
EXAMINATION: XR chest 1V portable DATE: 08/22/2024 08:15 INDICATION: Cough. TECHNIQUE: A single frontal view of the chest was obtained. COMPARISON: Chest single view 10/08/2021, chest CT 03/19/2021 FINDINGS: There is no pneumonia, pleural effusion, or pneumothorax. The heart size is normal. There a re prominent pericardial fat pads. IMPRESSION: 1. No acute cardiopulmonary disease. Reviewed, dictated and finalized at location A. [employer]
--- NOTE | 2024-08-22 07:51 | ECG_ITS ---
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
[2024-08-22 08:47] LABS: Influenza A QL RT-PCR Positive (Negative); Influenza B QL RT-PCR Negative (Negative); RSV RNA, RT-PCR Negative (Negative); SARS-CoV-2 RNA PCR Negative (Negative)
[2024-08-22 08:50] LABS: Basophils Absolute Auto 0.1 K/mm3 (0.0-0.1); Basophils Percent Auto 1.2 % (0.2-1.2); Eosinophils Absolute Auto 0.1 K/mm3 (0-0.3); Eosinophils Percent Auto 3.4 % (0-4.4); Hematocrit 34.4 % (37.0-47.0); Hemoglobin 11.2 g/dL (12.0-15.0); Immature Granulocyte Absolute 0.02 K/mm3 (0.00-0.031); Immature Granulocyte Percent A 0.5 % (0-0.5); Lymphocytes Percent Auto 26.5 % (18.3-44.2); Mean Corpuscular HGB Conc 32.6 g/dl (32-36); Mean Corpuscular Hemoglobin 30.9 pg (26-34); Mean Platelet Volume 10.2 fl (7.4-10.4); Monocytes Percent Auto 23.4 % (2.6-8.5); Neutrophils Absolute Auto 1.9 K/mm3 (1.3-6.7); Platelet Count Result 160 k/mm3 (150-375); Red Blood Count 3.62 M/mm3 (4.2-5.4); Red Cell Distribution Width 12.1 % (11.5-14.5); White Blood Count 4.2 K/mm3 (4.5-10.0)
--- OUTSIDE RECORDS SUMMARY | 2024-08-22 08:50 | XMS_ITS ---
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 (M50.122 - ICD-10-CM) ACTIVE 01/24/2023 OTHER SYMPTOMS AND SIGNS INV OLVING THE NERVOUS SYSTEM (R29.818 - ICD-10-CM) ACTIVE 01/24/2023 OTHER SPONDYLOSIS WITH MYELO BRE, CERVICAL REGION (M47.12 - ICD-10-CM) ACTIVE 01/24/2023 OTHER SPONDYLOSIS WITH MYELO BRE, LUMBAR REGION (M47.16 - ICD-10-CM) ACTIVE 01/24/2023 DORSALGIA, UNSPECIFIED (M54.9 - ICD-10-CM) ACTIVE 01/24/2023 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) ACTIVE 01/24/2023 LOW BACK PAIN, UNSPECIFIED (M54.50 - ICD-10-CM) ACTIVE 01/24/2023 NEURALGIA AND NEURITIS, UNSPECIFIED (M79.2 - ICD-10-CM ) ACTIVE 01/24/2023 GOUT, UNSPECIFIED (M10.9 - ICD-10-CM) ACTIVE CHRONIC KIDNEY DISEASE, UNSPECIFIED (N18.9 - ICD-10-CM ) ACTIVE 01/24/2023 OTHER ABNORMALITIES OF GAIT AND MOBILITY (R26.89 - ICD-10-CM) ACTIVE 01/24/2023 MUSCLE WEAKNESS (GENERALIZED) (M62.81 - ICD-10-CM) ACT KYLE 01/24/2023 NEED FOR ASSISTANCE WITH PERSONAL CARE (Z74.1 - ICD-10 -CM) ACTIVE 01/24/2023 ANESTHESIA OF SKIN (R20.0 - ICD-10-CM) ACTIVE FUNCTIONAL URINARY INCONTINENCE (R39.81 - ICD-10-CM) A CTIVE 01/24/2023 BODY MASS INDEX [BMI] 35.0-3 5.9, ADULT (Z68.35 - ICD-10-CM) ACTIVE 01/24/2023 HYPERLIPIDEMIA, UNSPECIFIED (E78.5 - ICD-10-CM) ACTIVE 01/24/2023 ESSENTIAL (PRIMARY) HYPERTENSION (I10 - ICD-10-CM) ACT KYLE 01/24/2023 UNSPECIFIED OSTEOARTHRITIS, UNSPECIFIED SITE (M19.90 - ICD-10-CM) ACTIVE 01/24/2023 CARDIOMYOPATHY, UNSPECIFIED (I42.9 - ICD-10-CM) ACTIVE 01/24/2023 OSTEOPHYTE, 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 - ICD-10-CM) ACTIVE 01/24/2023 Results * CBC W/DIFF Performed by: [address], [place] [id number] Component Value Range Date HEMOGLOBIN 11.4 g/dL 12.0-16.0 01/25/2023 07:1 1 pm EDT * CMP-COMPREHENSIVE METABOLIC PNL Performed by: [address], [address] [id number] Component Value Range Date POTASSIUM 4.1 mEq/L 3.5-5.3 01/25/2023 07:1 1 pm EDT SODIUM 137 mEq/L 136-145 01/25/2023 07:1 1 pm EDT BUN (UREA NITROGEN) 34 mg/dL 7-25 01/26/20 23 07:11 pm EDT CARBON DIOXIDE (CO2) 21 mEq/L 21-33 023 07:11 pm EDT CHLORIDE 99 mEq/L 98-110 01/25/2023 07:1 1 pm EDT * CBC W/DIFF Performed by: [address], [facility] [address] [facility] [id number] Component Value Range Date RBC 3.67 M/cmm 3.90-5.40 01/25/2023 07:1 1 pm EDT MCHC 32.8 g/dL 31.0-36.5 01/25/2023 07:1 1 pm EDT MCH 31.0 pg 26.0-35.0 01/25/2023 07:1 1 pm EDT HEMATOCRIT 34.7 % 36.0-48.0 01/25/2023 07:1 1 pm EDT WBC 11.4 K/cmm 4.5-10.8 01/25/2023 07:1 1 pm EDT * CMP-COMPREHENSIVE METABOLIC PNL Performed by: [address], [place] [address] Component Value Range Date ALT (SGPT) 10 IU/L 4-55 01/25/2023 07:1 1 pm EDT * CBC W/DIFF Performed by: [address], [place] [address] Component Value Range Date PLATELET 180 K/cmm 150-450 01/25/2023 07:1 1 pm EDT * CMP-COMPREHENSIVE METABOLIC PNL Performed by: [address], [place] [id number] Component Value Range Date AST (SGOT) 13 IU/L 4-40 01/25/2023 07:1 1 pm EDT ALBUMIN 3.4 g/dL 3.5-5.5 01/25/2023 07:1 1 pm EDT PROTEIN, TOTAL 6.2 g/dL 6.0-8.3 01/25/2023 07 :11 pm EDT ALKALINE PHOS 72 IU/L 34-136 01/25/2023 07: 11 pm EDT * CBC W/DIFF Performed by: [address], [place] [id number] Component Value Range Date RDW 13.6 % 11.0-16.0 01/25/2023 07:1 1 pm EDT NEUTROPHILS 68.3 % 40.0-80.0 01/25/2023 07:1 1 pm EDT * CMP-COMPREHENSIVE METABOLIC PNL Performed by: [address], [place] [address] Component Value Range Date JXK-KLS-YINFCXY 33 mL/min/1.73 m2 >60 01/25/2023 07:11 pm EDT GFR- 40 mL/min/1.73 m2 >60 07:11 pm EDT * CBC W/DIFF Performed by: [address], [address] [address] Component Value Range Date MCV 94.6 fL 80.0-100.0 01/25/2023 07:1 1 pm EDT LYMPHS (ABSOLUTE) 2.10 K/uL 0.90-5.50 01/25/2023 07:11 pm EDT MONOCYTES 12.2 % 2.0-12.0 01/25/2023 07:1 1 pm EDT LYMPHS 18.4 % 13.0-48.0 01/25/2023 07:1 1 pm EDT BASO 0.4 % 0.0-2.0 01/25/2023 07:1 1 pm EDT EOS 0.7 % 0.0-8.0 01/25/2023 07:1 1 pm EDT NEUTS (ABSOLUTE) 7.80 K/uL 1.50-7.60 01/25/2023 07:11 pm EDT * PROTIME-INR Performed by: [address], [place] [id number] Component Value Range Date PROTIME 11.5 sec 9.8-12.2 01/25/2023 07:1 1 pm EDT * CBC W/DIFF Performed by: [address], [place] [address] Component Value Range Date EOS (ABSOLUTE) 0.10 K/uL 0.20-0.80 01/25/2023 07 :11 pm EDT MONOCYTES (ABSOLUTE) 1.40 K/uL 0.15-1.10 023 07:11 pm EDT * PROTIME-INR Performed by: [address], [place] [id number] Component Value Range Date INR 1.1 0.9-1.2 01/25/2023 07:1 1 pm EDT * CMP-COMPREHENSIVE METABOLIC PNL Performed by: [address], [place] [id number] Component Value Range Date BUN/CREATININE RATIO 23 6-25 023 07:11 pm EDT A/G RATIO 1.2 0.8-2.0 01/25/2023 07:1 1 pm EDT * GLYCO-HGBA1C Performed by: [address], [address] [address] Component Value Range Date GLYCOHEMOGLOBIN-HGBA1C 5.7 % 4.1-6.1 01/25 07:11 pm EDT * Individual Tests: CMP-COMPREHENSIVE METABOLIC PNL / LIPID PROFILE w/calc LDL / GLYCO-HGBA1C / CBC W/DIFF / PROTIME-INR / TSH 3-UL / VITAMIN D 25-OH TOTAL Performed by: [address], [address] [id number] Component Value Range Date TSH 3-UL 0.941 uIU/mL 0.340-5.500 01/25/2023 07:1 1 pm EDT * CBC W/DIFF Performed by: [address], [address] [address] Component Value Range Date MPV 9.2 fL 6.5-12.0 01/25/2023 07:1 1 pm EDT * CMP-COMPREHENSIVE METABOLIC PNL Performed by: [address], [address] [address] Component Value Range Date CREATININE 1.5 mg/dL 0.6-1.2 01/25/2023 07:1 1 pm EDT GLUCOSE 81 mg/dL 01/25/2023 07:1 1 pm EDT CALCIUM 8.8 mg/dL 8.6-10.3 01/25/2023 07:1 1 pm EDT BILIRUBIN, TOTAL 1.6 mg/dL 0.2-1.2 01/25/2023 07:11 pm EDT * LIPID PROFILE w/calc LDL Performed by: [address], [address] [address] Component Value Range Date CHOLESTEROL 160 mg/dL <200 01/25/2023 07:1 1 pm EDT TRIGLYCERIDE 123 mg/dL <150 01/25/2023 07:1 1 pm EDT HDL 49 mg/dL >50 01/25/2023 07:1 1 pm EDT LDL CALCULATED 86 mg/dL <100 01/25/2023 07 :11 pm EDT LDLc/HDL RATIO 1.8 <4:1 01/25/2023 07 :11 pm EDT * GLYCO-HGBA1C Performed by: [address], [address] [address] Component Value Range Date eAG (Mean Glucose) 117 mg/dL <136 07:11 pm EDT * LIPID PROFILE w/calc LDL Performed by: [address], [address] [id number] Component Value Range Date VLDLc 25 mg/dL 5-40 01/25/2023 07:1 1 pm EDT * Individual Tests: CMP-COMPREHENSIVE METABOLIC PNL / LIPID PROFILE w/calc LDL / GLYCO-HGBA1C / CBC W/DIFF / PROTIME-INR / TSH 3-UL / VITAMIN D 25-OH TOTAL Performed by: [address], [address] [address] Component Value Range Date VITAMIN D 25-OH TOTAL 24 ng/mL 30-100 2022 07:11 pm EDT Encounters Encounter Performer Performer Role Encounter Diagnoses Location Date Discharge - Discharged to home or self care - Home with Family - Private home/apt. with no home health services [facility] 01/24/2023 01:37 pm EDT - 02/19/2023 05:45 pm EDT Social History
--- OUTSIDE RECORDS SUMMARY | 2024-08-22 08:50 | XMS_ITS | Clinical Summary ---
Author Organization [facility] [place] [address] Address [address] [place] [address] Care Team Providers Care Assistant Mechanic Name Role Phone Brian Dugan MD Primary Care Provider Allergies No known active allergies Medications aspirin 81 mg enteric coated tablet Take 1 tablet (81 mg total) by mouth daily 30 tablet 3 Active carvediloL (COREG) 3.125 mg tablet Take 1 tablet (3.125 mg total) by mouth 2 (two) times a day with meals 60 tablet 3 Active diclofenac sodium (VOLTAREN) 1 % gel Apply 4 g topically 3 (three) times a day 360 g 3 Active hydroCHLOROthia zide (HYDRODIURIL) 12.5 mg tablet Take 1 tablet (12.5 mg total) by mouth daily 30 tablet 3 Active lidocaine (LIDODERM) 5 % Place 2 patches on the skin daily Remove & discard patch within 12 hours or as directed by . 60 patch 3 Active losartan (COZAAR) 100 mg tablet Take 1 tablet (100 mg total) by mouth daily 30 tablet [address] (PROTONIX) 40 mg EC tabletIndicatio ns:Treatment of Non-Bleeding Gastric Disorder Take 1 tablet (40 mg total) by mouth daily 30 tablet 3 Active polyethylene glycol (MIRALAX) 17 gram packetIndicatio ns:constipation Take 1 packet (17 g total) by mouth daily as needed for constipation 30 packet 3 Active rosuvastatin (CRESTOR) 5 mg tablet Take 1 tablet (5 mg total) by mouth nightly 30 tablet 3 Active Active Problems Problem Noted Date Diagnosed Date Back pain associated with peripheral numbness Surgical History Surgery Date Site/Laterality Comments [facility] TONSILLECTOMY PRIMARY/SEC ONDARY <AGE 12 Tonsillectomy - (Added by TW Conv) Medical History Medical History Date Comments Personal history of arthritis Ar thritis - (Added by TW Conv) Personal history of other en docrine, nutritional and metabolic disease History of hyperlipi demia - (Added by TW Conv) Personal history of other di seases of the circulatory system History of hypertension - (A dded by TW Conv) Social History Tobacco Use Types Packs/Day Years Used Date Smoking Tobacco: Never Personal Safety Answer Date Recorded Have you ever been in or are you currently in a harmful physical or emotional relationship or is someone making you feel afraid or unsafe? 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 Gender Identity Not on file Sexual Orientation Not on file Obstetrics History Last Filed Vital Signs Vital Sign Reading Time Taken Comments Blood Pressure 147/51 01/24/2023 8:08 AM CDT Pulse 71 01/24/2023 8:08 AM CDT Temperature 36.8 C (98.2 F) 01/24/2023 8:08 AM CDT Respiratory Rate 18 01/24/2023 8:08 AM CDT Oxygen Saturation 98% 01/24/2023 8:08 AM CDT Inhaled Oxygen Concentration - - Weight 93 kg (205 lb) 01/20/2023 12:30 AM CDT Height 165.1 cm (5' 5 ) 01/20/2023 12:30 AM CDT Body Mass Index 34.11 01/20/2023 12:30 AM CDT Plan of Treatment Health Maintenance Due Date Last Done Comments Depression Screening 1935 Fall Risk Assessment 1935 DTaP/Tdap/Td Vaccine (1 - Tdap) 1946 Hepatitis B Screening 1953 Zoster Vaccine (1 of 2) 1985 Well Visit 65+ 2000 Influenza Vaccine (#1) 2024 0, 03/26/2019, 04/22/2018, Additional history exists Pneumococcal vaccine 65+ Completed 04/30/2017, 10/2014 Insurance * Guarantor: Dahiana Polo Account Type Relation to Patient Date of Phone Billing Address Personal/Family Self [address] [place], [place] [id number] MEDICARE SOLUTIONS * Guarantor: Dahiana Polo Account Type Relation to Patient Date of Phone Billing Address Personal/Family Self [address] [place] [id number] MEDICARE SOLUTIONS Advance Directives For more information, please contact: [phone] * Full Code (Latest Code Status on File) Date Activated Date Inactivated Comments 01/19/2023 11:44 PM 01/24/2023 2:56 PM Care Teams Assistant Mechanic Relationship Specialty Start Date End Date Brian Dugan MD [address] [facility] [address] [place] [address] PCP - General Family Medicine 10/15/20
--- OUTSIDE RECORDS SUMMARY | 2024-08-22 08:50 | XMS_ITS | Referral Summary ---
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 Gender Identity Not on file Sexual Orientation Not on file Last Filed Vital Signs Vital Sign Reading [...] 01/20/2023 12:30 AM CDT Plan of Treatment Not on file Insurance MEDICARE SOLUTIONS * Guarantor: Dahiana Polo Account Type Relation to Patient Date of Phone Billing Address Personal/Family Self [address] [place] [address] MEDICARE SOLUTIONS * Guarantor: Dahiana Polo Account Type Relation to Patient Date of Phone Billing Address Personal/Family Self [address] [place] [address] MEDICARE SOLUTIONS Advance Directives For more information, please contact: [phone] * Full Code (Latest Code Status on File) Date Activated Date Inactivated Comments 01/19/2023 11:44 PM 01/24/2023 2:56 PM Care Teams Regional Truck Driver Relationship Specialty Start Date End Date Brian Dugan MD [address] [facility] [address] [place] [address] PCP - General Family Medicine 10/15/20
[2024-08-22 09:04] LABS: Alanine Aminotransferase 13 U/L (6-35); Albumin Level 3.5 g/dL (3.5-5.1); Alkaline Phosphatase 79 U/L (38-126); Anion Gap 10 mmol/L (4-12); Aspartate Amino Transferase 25 U/L (14-36); Bilirubin,Total 0.9 mg/dL (0.2-1.3); Blood Urea Nitrogen 24 mg/dL (7-17); Calcium 8.8 mg/dL (8.4-10.2); Carbon Dioxide 24 mmol/L (22-30); Chloride 105 mmol/L (98-107); Estimated CRCL calculation 32 ml/min; Estimated Glomerular Filt Rate 40; Glucose 96 mg/dL (65-110); Potassium 4.5 mmol/L (3.4-5.0); Sodium 139 mmol/L (137-145)
[2024-08-22 09:10] LABS: Band Neutrophils Percent 7 % (0-6); Monocytes Absolute Manual 0.88 K/mm3 (0.1-0.90); Monocytes Percent Manual 21 % (3-9); Neutrophils Absolute Manual 2.31 K/mm3 (1.7-7.2); Neutrophils Percent Manual 48 % (46-73); Total Cells Counted 100
[2024-08-22 09:11] LABS: Platelet Estimate Adequate (Adequate); Schistocytes None Seen
[2024-08-22 09:13] LABS: NT Pro B Type Natriuretic Pept 2590 pg/mL (19.9-100); Troponin I 0.015 ng/mL (0.000-0.034)
--- NOTE | 2024-08-22 09:35 | ED_ITS ---
HPI - General Adult General Chief complaint: Shortness of Breath/Dyspnea Stated complaint: SOB Time Seen by Provider: 08/22/24 07:54 Source: patient Mode of arrival: EMS Limitations: no limitations History of Present Illness HPI narrative: 88-year-old with a history of hypertension, hyperlipidemia, GERD here with the complaints of cough which is nonproductive for past few days. She denies any fever. She states that she gets bronchitis . 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 had similar symptoms Onset (ago): day(s) (2) Radiation: non-radiation Severity: moderate Quality: aching Pain Consistency: constant Relieving factors: none Exacerbating factors: none Associated symptoms: cough Related Data Home Medications ?Medication ?Instructions ?Recorded ?Confirmed ?Last Taken ?Type aspirin 81 mg tablet,delayed 81 mg PO DAILY 06/18/19 04/07/24 10/06/21 History release (Aspir-) cyanocobalamin (vitamin B-12) 100 1,000 mcg PO DAILY 06/18/19 04/07/24 10/06/21 History mcg tablet vit 1 tablet PO DAILY 06/18/19 04/07/24 10/06/21 History [id number] 500 mg-50 mg-25 mg-40 mg tablet (Bioflex) Allergies Allergy/AdvReac Type Severity Reaction Status Date / Time No Known Allergies Allergy Mild Verified 08/22/24 09:05 Review of Systems 2 Review of Systems: All systems reviewed & are unremarkable except as noted in HPI and below Constitutional: Constitutional: Reports no additional constitutional complaints Eyes: Eyes: Reports no additional eye complaints ENT: Reports system reviewed and no additional complaints, except as documented Cardiovascular: Cardiovascular: Reports no additional cardiovascular complaints Respiratory: Respiratory: Reports as per HPI Gastrointestinal: Gastrointestinal: Reports no additional gastrointestinal complaints Genitourinary: Genitourinary: Reports no additional female genitourinary complaints Integumentary/Breasts: Skin/Breast: Reports system reviewed and no additional complaints, except as docu PMFSH Past Medical History Medical History Thoracic spinal stenosis Lumbar spinal stenosis 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 Gout Hypertension CKD (chronic kidney disease), stage III PND (post-nasal drip) Surgical History Surgical History Status post cataract extraction History of hysterectomy History of tonsillectomy Family History Family History Father Family history of lung cancer Mother Family history of lung cancer Social History Social History Social History: The patient lives home alone. She is . 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 She is a full code and desires to have her sister rishi collins and maribeth collins are listed as her durable power document review attorney for healthcare. The patient is a lifelong nonsmoker. She does not use any alcohol marijuana or illicit drugs. Smoking status: Never smoker Second hand tobacco smoke exposure: No Alcohol intake: never Substance use: never Substance use type: does not use Do You Feel Safe in your Home?: Yes Lack of Transportation: No Lack of Food: Never True Current Housing: I Have Housing Concerned About Future Housing: No Difficulty Paying Gas/Electric Bills: No Difficulty Paying for Meds: No Currently Unemployed: YES Education: Don't Know Difficulty w/ Childcare or Family Care: No Living arrangements: alone Occupation/Education: retired Gender identity (if verbalized by the patient): Female Sexual Orientation (if Verbalized by the Patient): Straight or Heterosexual Spiritual care concerns: No Exam 2 Narrative: GENERAL: Well-appearing, well-nourished, and in no acute distress. HEAD: Normocephalic, atraumatic. EYES: PERRLA and EOMI. NECK: Supple. CHEST: Clear to auscultation. No respiratory distress. HEART: Regular rate and rhythm. No murmur heard. Normal peripheral pulses. ABDOMEN: Soft, nontender, nondistended, normal active bowel sounds. EXTREMITIES: Normal range of motion. No edema. SKIN: Warm, dry, no rash. NEURO: No focal deficits. Alert and oriented x3. PSYCH: Normal mood and affect. Course Course Emergency Course: Notified patient about her lab work included a SpO2 is 100% on room air. Advised to drink plenty fluids Cl take Tylenol as needed for body aches and fever. She is not a candidate for Tamiflu as the symptoms are more than 48 hours . Vital Signs Vital signs: Vital Signs Temperature 36.9 C 08/22/24 07:45 Pulse Rate 45 L 08/22/24 07:45 Respiratory Rate 08/22/24 07:45 Blood Pressure 160/68 H 08/22/24 07:45 Pulse Oximetry 95 08/22/24 07:45 Oxygen Delivery Room Air 08/22/24 07:45 Temperature 36.9 C 08/22/24 07:45 Pulse Rate 46 L 08/22/24 07:50 Respiratory Rate 08/22/24 07:45 Blood Pressure 160/68 H 08/22/24 07:45 Pulse Oximetry 95 08/22/24 07:45 Oxygen Delivery Room Air 08/22/24 07:45 Medical Decision Making Differential Diagnosis Differential Diagnosis: Bronchitis, pneumonia Medical Records Medical records reviewed: Yes I reviewed the external patient's medical records. Vital Signs Vital Signs: Vital Signs Temperature 36.9 C 08/22/24 07:45 Pulse Rate 45 L 08/22/24 07:45 Respiratory Rate 08/22/24 07:45 Blood Pressure 160/68 H 08/22/24 07:45 Pulse Oximetry 95 08/22/24 07:45 Oxygen Delivery Room Air 08/22/24 07:45 Temperature 36.9 C 08/22/24 07:45 Pulse Rate 46 L 08/22/24 07:50 Respiratory Rate 08/22/24 07:45 Blood Pressure 160/68 H 08/22/24 07:45 Pulse Oximetry 95 08/22/24 07:45 Oxygen Delivery Room Air 08/22/24 07:45 Lab Data Lab results reviewed: Yes I reviewed the patient's lab results. 08/22/24 08:32 08/22/24 08:32 Labs: Lab Results 08/22/24 08/22/24 Range/Units 08:02 08:32 WBC 4.2 L (4.5-10.0) K/mm3 RBC 3.62 L (4.2-5.4) M/mm3 Hgb 11.2 L (12.0-15.0) g/dL Hct 34.4 L (37.0-47.0) % MCV 95.0 (80-100) fl MCH 30.9 (26-34) pg MCHC 32.6 (32-36) g/dl RDW 12.1 (11.5-14.5) % Plt Count 160 (150-375) k/mm3 MPV 10.2 (7.4-10.4) fl Immature Gran % (Auto) 0.5 (0-0.5) % Neut % (Auto) 45.0 L (45.5-73.1) % Lymph % (Auto) 26.5 (18.3-44.2) % [place] % (Auto) 23.4 H (2.6-8.5) % Eos % (Auto) 3.4 (0-4.4) % Baso % (Auto) 1.2 (0.2-1.2) % Lymph # (Auto) 1.10 (0.9-3.2) K/mm3 [place] # (Auto) 1.0 H (0.1-0.6) K/mm3 Eos # (Auto) 0.1 (0-0.3) K/mm3 Baso # (Auto) 0.1 (0.0-0.1) K/mm3 Abs Immat Gran (auto) 0.02 (0.00-0.031) K/mm3 Absolute Neuts (auto) 1.9 (1.3-6.7) K/mm3 Absolute Nucleated RBC 0.000 (0.0-0.012) K/mm3 Total Counted 100 Neutrophils % (Manual) 48 (46-73) % Band Neutrophils % 7 H (0-6) % Lymphocytes % (Manual) 24.0 (18-44) % Monocytes % (Manual) 21 H (3-9) % Nucleated RBC % 0.0 (0.0-0.2) % Abs Neuts (Manual) 2.31 (1.7-7.2) K/mm3 Abs Lymphs (Manual) 1.00 L (1.1-4.5) K/mm3 Abs Monocytes (Manual) 0.88 (0.1-0.90) K/mm3 Platelet Estimate Adequate (Adequate) Schistocytes None seen Sodium 139 (137-145) mmol/L Potassium 4.5 (3.4-5.0) mmol/L Chloride 105 (98-107) mmol/L Carbon Dioxide 24 (22-30) mmol/L Anion Gap 10 (4-12) mmol/L BUN 24 H (7-17) mg/dL Creatinine 1.27 H (0.7-1.0) mg/dL Estim Creat Clear Calc 32 ml/min Estimated GFR 40 L (59 - ) Glucose 96 (65-110) mg/dL Calcium 8.8 (8.4-10.2) mg/dL Total Bilirubin 0.9 (0.2-1.3) mg/dL AST 25 (14-36) U/L ALT 13 (6-35) U/L Alkaline Phosphatase 79 (38-126) U/L Troponin I 0.015 (0.000-0.034) ng/mL NT-Pro-B Natriuret Pep 2590 H (19.9-100) pg/mL Total Protein 7.0 (6.3-8.2) g/dL Albumin 3.5 (3.5-5.1) g/dL Influenza A (RT-PCR) Positive A (Negative) Influenza B (RT-PCR) Negative (Negative) RSV (RT-PCR) Negative (Negative) SARS-CoV-2 RNA (RT-PCR) Negative (Negative) Imaging Data Radiologist's impression: ITS Impressions Chest X-Ray 08/22/24 08:17 IMPRESSION: 1. No acute cardiopulmonary disease. ECG Data EKG #1: ECG completion date: 08/22/24 ECG completion time: 07:59 EKG Interpretation: bradycardia (42), no ectopy, non-specific ST changes, normal QT and NL axis Discharge Plan Discharge Clinical Impression: Influenza A Acute bronchitis Qualifiers: Bronchitis organism: other organism Qualified Code(s): J20.8 - Acute bronchitis due to other specified organisms Patient Disposition: Home, Self-Care Condition: Stable Instructions: Influenza (ED) Patient Language: Citizen [place] Prescriptions: New benzonatate 200 mg capsule 200 mg PO TID PRN (Reason: cough) Qty: 20 0RF No Action aspirin [Aspir-81] 81 mg tablet,delayed release (DR/EC) 81 mg PO DAILY cyanocobalamin (vitamin B-12) 100 mcg tablet 1,000 mcg PO DAILY Bioflex [id number] mg tablet 1 tablet PO DAILY nystatin-triamcinolone 100,000-0.1 unit/g-% cream 1 applic topical BID Qty: 15 1RF hydrochlorothiazide 12.5 mg tablet 12.5 mg PO DAILY Qty: 90 3RF losartan 100 mg tablet 100 mg PO DAILY Qty: 90 3RF rosuvastatin 5 mg tablet 5 mg PO DAILY Qty: 90 3RF carvedilol 12.5 mg tablet 12.5 mg PO Q12H Qty: 180 2RF Rx Instructions: must administer with a meal/food diclofenac sodium 75 mg tablet,delayed release (DR/EC) 75 mg PO BID Qty: 180 1RF nystatin 100,000 unit/mL suspension 5 ml PO DAILY Qty: 60 0RF Rx Instructions: swish and swallow omeprazole 20 mg capsule,delayed release(DR/EC) See Rx Instructions .ROUTE .COMPLEX Qty: 90 2RF Dose Instruction: TAKE 1 CAPSULE DAILY Rx Instructions: TAKE 1 CAPSULE DAILY Follow-up/Referrals: Brian Dugan MD [Primary Care Provider] - Time of Disposition: 09:43
== END 2024-08-22 10:11 | disposition home or self-care (01) ==
PROVIDERS: Emergency Provider Family Medicine; PCP Family Medicine
DX: J10.1 Influenza due to other identified influenza virus with other respiratory manifestations (principal); Z20.822 Contact with and (suspected) exposure to COVID-19; I12.9 Hypertensive chronic kidney disease with stage 1 through stage 4 chronic kidney disease, or unspecified chronic kidney disease; N18.30 Chronic kidney disease, stage 3 unspecified; E78.5 Hyperlipidemia, unspecified; K21.9 Gastro-esophageal reflux disease without esophagitis; M10.9 Gout, unspecified; Z98.49 Cataract extraction status, unspecified eye; Z90.710 Acquired absence of both cervix and uterus; Z79.82 Long term (current) use of aspirin; Z79.899 Other long term (current) drug therapy; R00.1 Bradycardia, unspecified; I45.9 Conduction disorder, unspecified; R94.31 Abnormal electrocardiogram [ECG] [EKG]; I51.7 Cardiomegaly
CPT/HCPCS: 36415; 71045; 80053; 83880; 84484; 85025; 87637; 93005; 99284